=== PATIENT | male | born 1975 | race Caucasian/White ===

== ENCOUNTER 2018-07-18 15:28 | Inpatient (IN) | payer OTHER ==
[~2018-07-18] VITALS: Ht 182.9 cm; Wt 104.9 kg
[2018-07-18 21:48] VITALS: PULSE 92
[2018-07-18 21:53] VITALS: Ht 182.9 cm; Wt 104.9 kg
[2018-07-18 22:00] VITALS: BP 123/75; PULSE 95; RESP 20
[2018-07-18] MEDS ORDERED: NACL 0.9% 3 ML SYG IV SCH (22:30)
[2018-07-18] MEDS: SOD CHLORIDE 0.9% 1,000 ML IV SCH (23:10)
[2018-07-18 23:13] VITALS: BP 114/75; PULSE 109; RESP 18
[2018-07-19] VITALS (12 sets, daily range): BP systolic 108–118; BP diastolic 63–78; PULSE 66–107; RESP 17–22
[2018-07-19] MEDS: ACETAMINOPHEN 325 MG TAB PO PRN (02:47)
--- NOTE | 2018-07-19 03:28 | HP ---
Date/Time of Note Date/Time of Note DATE: 07/19/18 TIME: 03:28 Assessment/Plan VTE Prophylaxis Pharmacological prophylaxis: other Lines/Catheters IV Catheter Type (from Nrsg): Peripheral IV Assessment/Plan Hospital Course Objective Physical exam General: Patient is laying in bed and answers questions appropriately Mentation: Patient is alert and oriented 4, Head: Normocephalic atraumatic Eyes: EOMI, pupils reactive to light Neck: Supple, nontender, midline Respiratory: Clear to auscultation bilaterally Cardiovascular: Tachycardic rate, no obvious murmurs Gastrointestinal: non-tender to palpation, bowel sounds heard. Neurological: Moves all extremities spontaneously Skin: Mild edema in lower extremity bilaterally Assessment and plan Elevated liver enzyme, elevated bilirubin -CT done at outside facility does not show any obstruction of the biliary tree and is significant for fatty liver but not yet cirrhosis. -Biliary pattern is suggestive of obstruction however no dilation or obstruction seen on CT, will get ultrasound to confirm -Day team to consult GI Alcohol withdrawal -Librium on board, taper as tolerated -Ativan IV as needed for backup -Banana bag -Normal saline Electrolyte derangement -Very mild, continue fluids Anemia -Mild, monitor Diverticulitis -Asymptomatic, continue Zosyn for now, transition to oral medications soon Disposition -Admit patient for monitoring of alcohol withdrawal, will need to workup elevat ed bilirubin, day team to consult GI. Result Diagram: 07/18/18230107/18/182301 Results 24hrs Laboratory Tests Test 07/18/18 23:02 White Blood Count 7.0 Red Blood Count 3.65 L Hemoglobin 12.4 L Hematocrit 35.2 L Mean Corpuscular Volume 96.4 Mean Corpuscular Hemoglobin 34.0 H Mean Corpuscular Hemoglobin Concent 35.2 Red Cell Distribution Width 16.7 H Platelet Count 90 L Mean Platelet Volume 12.0 H Immature Granulocytes % 0.700 H Neutrophils % 71.5 Lymphocytes % 8.0 L Monocytes % 18.2 H Eosinophils % 1.3 Basophils % 0.3 Nucleated Red Blood Cells % 0.0 Immature Granulocytes # 0.050 H Neutrophils # 5.0 Lymphocytes # 0.6 L Monocytes # 1.3 H Eosinophils # 0.1 Basophils # 0.0 Nucleated Red Blood Cells # 0.0 Sodium Level 133 L Potassium Level 3.5 Chloride Level 96 L Carbon Dioxide Level 25 Anion Gap 12 Blood Urea Nitrogen 7 Creatinine 0.50 L Est Glomerular Filtrat Rate mL/min > 60 Glucose Level 102 Calcium Level 8.3 L Total Bilirubin 25.0 H Direct Bilirubin 18.80 *H Indirect Bilirubin 6.2 H Aspartate Amino Transf (AST/SGOT) 177 H Alanine Aminotransferase (ALT/SGPT) 59 Alkaline Phosphatase 192 H Total Protein 7.5 Albumin 3.1 L Globulin 4.40 H Albumin/Globulin Ratio 0.70 HPI/ROS Admit Date/Time Admit Date/Time Jul 18, 2018 at 21:26 Hx of Present Illness Patient is a male with a past medical history significant for alcoholism who presents to [facility] as a transfer from outside facility. Patient was brought to outside facility by a friend who was getting worried about the patient's drinking habits and wanted him to detox. Patient also would like to detox. In the other facility patient's labs were found to be diffusely abnormal as his bilirubin was elevated to 26. Patient was also found to have diverticulitis however patient denies any abdominal pain whatsoever. Patient does however state that his feet bilaterally feel more swollen and have been more painful than the past 2 days. Patient states that he drinks 6 L of vodka every day and he has tried quitting in the past and he does suffer from alcohol withdrawals. Patient denies chest pain, shortness of breath, headache, abdominal pain, nausea, vomiting. PMH/Family/Social Past Medical History Medications Current Medications Sodium Chloride 1,000 ml @ 125 mls/hr Q8H IV Last administered on 07/18/18at 23:10; Admin Dose 125 MLS/HR; Start 07/18/18 at 22:18 IV Flush (NS 3 ml) 3 ml PER PROTOCOL IV ; Start 07/18/18 at 22:30 Lorazepam (Ativan) 0.5 mg Q6H PRN IV .ANXIETY; Start 07/18/18 at 22:30 Acetaminophen (Tylenol Tab) 650 mg Q6H PRN PO .PAIN 1-3 OR TEMP Last administered on 07/19/18at 02:47; Admin Dose 650 MG; Start 07/18/18 at 22:30 Piperacillin Sod/ Tazobactam Sod 100 ml @ 200 mls/hr Q6 IVPB ; Start 07/19/18 at 06:00 Pantoprazole (Protonix Tab) 40 mg DAILY@06 PO ; Start 07/19/18 at 06:00 Multivitamins 10 ml/Thiamine HCl 100 mg/Folic Acid 1 mg/Sodium Chloride 1,011.2 ml @ 125 mls/ hr DAILY@09 IVPB ; Start 07/19/18 at 09:00 Chlordiazepoxide (Librium) 50 mg TID PO ; Start 07/19/18 at 09:00 Coded Allergies: risperidone (Verified Allergy, Severe, STOMACH REACTION, FACE LOCKS UP, 07/18/18) Social History Smoking Status: Former smoker Exam/Review of Systems Vital Signs Vitals Vital Signs Date Temp Pulse Resp B/P (MAP) Pulse Ox O2 O2 Flow FiO2 Time Delivery Rate 07/19/18 98.4 101 22 115/64 98 03:12 (81) DAISY CHADWICK Jul 19, 2018 03:28
[2018-07-19] MEDS: LORAZEPAM 2 MG INJ IV PRN ×2 (04:20→21:06)
[2018-07-19] MEDS: PANTOPRAZOLE (EC) 40 MG TAB PO SCH (05:29)
[2018-07-19] MEDS: PIPER-TAZO 3.375 GM IV (PMX) 100 ML IVPB SCH ×4 (05:29→23:34)
[2018-07-19] MEDS ORDERED: PANTOPRAZOLE 40 MG INJ IV SCH (06:00)
[2018-07-19] MEDS: SOD CHLORIDE 0.9% 1,000 ML IV SCH ×3 (06:18→17:40)
[2018-07-19] MEDS: MULTIVITAMINS 10 ML, THIAMINE 100 MG, FOLIC ACID 1 MG in SOD CHLORIDE 0.9% 1,000 ML IVPB SCH (08:47)
[2018-07-19] MEDS: CHLORDIAZEPOXIDE 25 MG CAP PO SCH ×3 (08:47→21:06)
--- NOTE | 2018-07-19 12:32 | CONS ---
Assessment/Plan Assessment/Plan Assessment/Plan (Daily) Assessment: Alcoholic hepatitis Coagulopathy Thrombocytopenia Hyperbilirubinemia Hepatic encephalopathy Diverticulitis Alcohol abuse -6 L of vodka a day DF 44 Plan: Start lactulose 3 times daily -titrate to 3 bowel movements a day Start pentoxifylline 400 mg p.o. 3 times daily instead of steroids Continue Zosyn for diverticulitis Monitor LFTs and bilirubin Monitor H&H Transfuse for hemoglobin less than 7.5 Recommend EGD for esophageal variceal screening inpatient versus outpatient Patient seen in collaboration with Consultation Date/Type/Reason Admit Date/Time Jul 18, 2018 at 21:26 Date of Consultation: Jul 19, 2018 Type of Consult GI Reason for Consultation Hyperbilirubinemia Date/Time of Note DATE: 07/19/18 TIME: 12:14 Hx of Present Illness This is a 43-year-old male with a history of alcoholism who has been brought to the hospital for detox. Patient was found to have bilirubin of 25, mostly direct bilirubin elevated. AST 152, thrombocytopenia and coagulopathy. Patient drinks 6 L of vodka a day. Appears encephalopathic and confused. CT of the abdomen and ultrasound is negative for biliary dilatation or obstruction. Patient has diverticulitis on CT and has been started on Zosyn. Patient denies nausea, vomiting, abdominal pain, hematemesis, hematochezia, diarrhea or constipation. Discriminant function is 44.2. Patient is not a good candidate for methylprednisolone treatment due to diverticulitis infection. We will start the patient on Pentoxifylline 400 mg po TID. lactulose 3 times daily for hepatic encephalopathy to titrate to 3 bowel movements per day. Patient has normocytic anemia. Recommend EGD for screening of esophageal varices inpatient versus outpatient. Gastrointestinal: no complaints (See HPI) Past Medical History Alcoholism Medications Current Medications Sodium Chloride 1,000 ml @ 125 mls/hr Q8H IV Last administered on 07/18/18at 23:10; Admin Dose 125 MLS/HR; Start 07/18/18 at 22:18 IV Flush (NS 3 ml) 3 ml PER PROTOCOL IV ; Start 07/18/18 at 22:30 Lorazepam (Ativan) 0.5 mg Q6H PRN IV .ANXIETY Last administered on 07/19/18at 04:20; Admin Dose 0.5 MG; Start 07/18/18 at 22:30 Acetaminophen (Tylenol Tab) 650 mg Q6H PRN PO .PAIN 1-3 OR TEMP Last administered on 07/19/18 02:47; Admin Dose 650 MG; Start 07/18/18 at 22:30 Piperacillin Sod/ Tazobactam Sod 100 ml @ 200 mls/hr Q6 IVPB Last administered on 07/19/18 05:29; Admin Dose 200 MLS/HR; Start 07/19/18 at 06:00 Pantoprazole (Protonix Tab) 40 mg DAILY@06 PO Last administered on 07/19/18 05:29; Admin Dose 40 MG; Start 07/19/18 at 06:00 Multivitamins 10 ml/Thiamine HCl 100 mg/Folic Acid 1 mg/Sodium Chloride 1,011.2 ml @ 125 mls/ hr DAILY@09 IVPB Last administered on 07/19/18 08:47; Admin Dose 125 MLS/HR; Start 07/19/18 at 09:00 Chlordiazepoxide (Librium) 50 mg TID PO Last administered on 07/19/18 08:47; Admin Dose 50 MG; Start 07/19/18 at 09:00 Pentoxifylline (Trental) 400 mg TID PO ; Start 07/19/18 at 13:00; Stop 08/16/18 at 12:59; Status UNV Allergies: Coded Allergies: risperidone (Verified Allergy, Severe, STOMACH REACTION, FACE LOCKS UP, 07/18/18) Past Surgical History Past Surgical Hx: no surgical history Social History Alcohol Use: heavy Smoking Status: Former smoker Drug Use: none Exam/Review of Systems Exam Vitals Vital Signs Date Temp Pulse Resp B/P (MAP) Pulse Ox O2 O2 Flow FiO2 Time Delivery Rate 07/19/18 92 12:08 07/19/18 98.2 17 117/75 98 12:03 (89) Intake and Output 07/18/18 07/18/18 07/19/18 1515:00 23:00 07:00 IntakeIntake Total 1275 ml BalanceBalance 1275 ml Exam PHYSICAL EXAMINATION: GENERAL: Well developed, well nourished, confused, in no acute distress SKIN: No lesions, profound jaundice, no evidence of bleeding diathesis LYMPHATIC: No palpable lymphadenopathy. HEAD: Normocephalic, atraumatic, no tenderness. EYES: Pupils equal reactive to light and accommodation, full extraocular movements, sclera-icteric, no discharge. EARS/NOSE AND THROAT: Ears normal, nose normal, oropharynx normal, oral membranes well hydrated without lesions. NECK: Supple, no masses, thyroid normal, JVP within normal limits, carotids normal without bruits. CHEST: Inspection within normal limits. CARDIOVASCULAR: Heart: Regular rate and rhythm, no murmurs, gallops or rubs. Peripheral pulses present within normal limits, no cyanosis, clubbing or edemas. No pulsatile abdominal mass RESPIRATORY: Lungs clear to auscultation and percussion, no wheezing, no rubs GASTROINTESTINAL AND LIVER: Abdomen: Soft, non tenderness, non-distended, no hernias, no masses, no organomegaly, no ascites, no guarding, no rebound tenderness, normoactive bowel sounds. Rectal: Deferred. GENITOURINARY: Male genitalia within normal limits. EXTREMITIES: No cyanosis, lower extremity edema. Results Result Diagram: 07/19/18 0724 07/19/18 0724 Results 24hrs Laboratory Tests Test 07/18/18 23:02 07/19/18 07:24 07/19/18 12:04 White Blood Count 7.0 5.7 Red Blood Count 3.65 L 3.17 L Hemoglobin 12.4 L 10.7 L Hematocrit 35.2 L 30.6 L Mean Corpuscular Volume 96.4 96.5 Mean Corpuscular Hemoglobin 34.0 H 33.8 H Mean Corpuscular Hemoglobin Concent 35.2 35.0 Red Cell Distribution Width 16.7 H 16.7 H Platelet Count 90 L 87 L Mean Platelet Volume 12.0 H 12.2 H Immature Granulocytes % 0.700 H 1.100 H Neutrophils % 71.5 65.1 Lymphocytes % 8.0 L 11.1 L Monocytes % 18.2 H 19.7 H Eosinophils % 1.3 2.5 Basophils % 0.3 0.5 Nucleated Red Blood Cells % 0.0 0.0 Immature Granulocytes # 0.050 H 0.060 H Neutrophils # 5.0 3.7 Lymphocytes # 0.6 L 0.6 L Monocytes # 1.3 H 1.1 H Eosinophils # 0.1 0.1 Basophils # 0.0 0.0 Nucleated Red Blood Cells # 0.0 0.0 Sodium Level 133 L 130 L Potassium Level 3.5 3.6 Chloride Level 96 L 94 L Carbon Dioxide Level 25 26 Anion Gap 12 10 Blood Urea Nitrogen 7 8 Creatinine 0.50 L 0.53 L Est Glomerular Filtrat Rate mL/min > 60 > 60 Glucose Level 102 87 Calcium Level 8.3 L 7.7 L Total Bilirubin 25.0 H 23.5 H Direct Bilirubin 18.80 *H 17.40 *H Indirect Bilirubin 6.2 H 6.1 H Aspartate Amino Transf (AST/SGOT) 177 H 156 H Alanine Aminotransferase (ALT/SGPT) 59 56 Alkaline Phosphatase 192 H 160 H Total Protein 7.5 6.4 # Albumin 3.1 L 2.7 L Globulin 4.40 H 3.70 H Albumin/Globulin Ratio 0.70 0.72 Prothrombin Time 19.4 H Prothrombin Time Ratio 1.5 INR International Normalized Ratio 1.63 Activated Partial Thromboplast Time 37.9 H Thrombin Time 19.0 Hemoglobin A1c 4.5 Magnesium Level 2.0 Triglycerides Level 94 Cholesterol Level 81 L LDL Cholesterol, Calculated 50 HDL Cholesterol 12 L Cholesterol/HDL Ratio 6.7 Thyroid Stimulating Hormone (TSH) 1.350 Bedside Glucose 107 Medications Medication Current Medications Sodium Chloride 1,000 ml @ 125 mls/hr Q8H IV Last administered on 07/18/18 23:10; Admin Dose 125 MLS/HR; Start 07/18/18 at 22:18 IV Flush (NS 3 ml) 3 ml PER PROTOCOL IV ; Start 07/18/18 at 22:30 Lorazepam (Ativan) 0.5 mg Q6H PRN IV .ANXIETY Last administered on 07/19/18 04:20; Admin Dose 0.5 MG; Start 07/18/18 at 22:30 Acetaminophen (Tylenol Tab) 650 mg Q6H PRN PO .PAIN 1-3 OR TEMP Last administered on 07/19/18 02:47; Admin Dose 650 MG; Start 07/18/18 at 22:30 Piperacillin Sod/ Tazobactam Sod 100 ml @ 200 mls/hr Q6 IVPB Last administered on 07/19/18 05:29; Admin Dose 200 MLS/HR; Start 07/19/18 at 06:00 Pantoprazole (Protonix Tab) 40 mg DAILY@06 PO Last administered on 07/19/18 05:29; Admin Dose 40 MG; Start 07/19/18 at 06:00 Multivitamins 10 ml/Thiamine HCl 100 mg/Folic Acid 1 mg/Sodium Chloride 1,011.2 ml @ 125 mls/ hr DAILY@09 IVPB Last administered on 07/19/18at 08:47; Admin Dose 125 MLS/HR; Start 07/19/18 at 09:00 Chlordiazepoxide (Librium) 50 mg TID PO Last administered on 07/19/18at 08:47; Admin Dose 50 MG; Start 07/19/18 at 09:00 Pentoxifylline (Trental) 400 mg TID PO ; Start 07/19/18 at 13:00; Stop 08/16/18 at 12:59; Status RANJEET KENNEDY NP Jul 19, 2018 12:27
--- NOTE | 2018-07-19 13:09 | PN ---
Date/Time of Note Date/Time of Note DATE: 07/19/18 TIME: 13:04 Assessment/Plan VTE Prophylaxis Risk score (from Ns)>0 risk: 3 SCD applied (from Ns): Yes Pharmacological prophylaxis: NA/contraindicated Pharm contraindication: liver dx Lines/Catheters IV [facility]from [facility] Assessment/Plan Hospital Course SUBJECTIVE: Denies any abdominal pain. Complains of bilateral lower extremity pain. OBJECTIVE: Physical Exam General: Obese 43 year-old male lying in bed in no apparent distress. HEENT: Normocephalic, atraumatic. Eyes: icteric sclerae, conjunctivae clear. ENT: Nasal septum midline, oral mucosa moist. Neck supple, JVD noticed. Respiratory: Bilaterally diminished breath sounds. No use of accessory muscles of respiration. No adventitious breath sounds. Cardiovascular: S1, S2 heard. Regular rate and rhythm. Abdomen: Soft, nontender, and nondistended. Bowel sounds positive in all 4 quadrants. Genitourinary: Deferred. Extremities: No cyanosis, no clubbing, no edema. Peripheral pulses palpable. Neurologic: Cranial nerves II through XII grossly intact. The patient is awake, alert, and oriented. Labs & Vitals per chart ASSESSMENT & PLAN 43-year-old male with past medical history alcoholism, who was brought in by for his friend for concerns of excessive alcoholism. The patient was noticed to have underlying hyperbilirubinemia with transaminitis. The patient was initially evaluated at an outside facility. The patient underwent a CT scan of the abdomen and pelvis that was also showing diverticulitis. The patient was transferred to [facility] for further evaluation because of insurance reasons. 1. Alcoholic hepatitis. -Continue pentoxifylline. -Being followed by gastroenterology. 2. Alcoholic liver cirrhosis vitamins. -Continue lactulose. -Plan for esophagogastroduodenoscopy to evaluate for any esophageal varices. 3. Transaminitis with hyperbilirubinemia. -Most probably secondary to #2. -Avoid hepatotoxic medications. 4. Alcoholism -Continue Librium taper. -Continue multivitamins. 5. Coagulopathy. -Most probably secondary to underlying liver disease. -Monitor for bleeding. 6. Obesity. -BMI more than 31 kg or menisci. -Weight reduction would be advised. 7. Diverticulitis on CT. -Continue Zosyn. 8. Fluids, electrolytes, and nutrition. -Mechanical soft diet. 9. DVT prophylaxis. -Chemical DVT prophylaxis contraindicated. 10. Plan. -Continue gastroenterology recommendations. -Await esophagogastroduodenoscopy. The patient was seen in collaboration with Dr. Walton. Result Diagram: 07/19/1824 07/19/18 0724 Results 24hrs Laboratory Tests Test 07/18/18 23:02 07/19/18 07:24 07/19/18 12:04 White Blood Count 7.0 5.7 Red Blood Count 3.65 L 3.17 L Hemoglobin 12.4 L 10.7 L Hematocrit 35.2 L 30.6 L Mean Corpuscular Volume 96.4 96.5 Mean Corpuscular Hemoglobin 34.0 H 33.8 H Mean Corpuscular Hemoglobin Concent 35.2 35.0 Red Cell Distribution Width 16.7 H 16.7 H Platelet Count 90 L 87 L Mean Platelet Volume 12.0 H 12.2 H Immature Granulocytes % 0.700 H 1.100 H Neutrophils % 71.5 65.1 Lymphocytes % 8.0 L 11.1 L Monocytes % 18.2 H 19.7 H Eosinophils % 1.3 2.5 Basophils % 0.3 0.5 Nucleated Red Blood Cells % 0.0 0.0 Immature Granulocytes # 0.050 H 0.060 H Neutrophils # 5.0 3.7 Lymphocytes # 0.6 L 0.6 L Monocytes # 1.3 H 1.1 H Eosinophils # 0.1 0.1 Basophils # 0.0 0.0 Nucleated Red Blood Cells # 0.0 0.0 Sodium Level 133 L 130 L Potassium Level 3.5 3.6 Chloride Level 96 L 94 L Carbon Dioxide Level 25 26 Anion Gap 12 10 Blood Urea Nitrogen 7 8 Creatinine 0.50 L 0.53 L Est Glomerular Filtrat Rate mL/min > 60 > 60 Glucose Level 102 87 Calcium Level 8.3 L 7.7 L Total Bilirubin 25.0 H 23.5 H Direct Bilirubin 18.80 *H 17.40 *H Indirect Bilirubin 6.2 H 6.1 H Aspartate Amino Transf (AST/SGOT) 177 H 156 H Alanine Aminotransferase (ALT/SGPT) 59 56 Alkaline Phosphatase 192 H 160 H Total Protein 7.5 6.4 # Albumin 3.1 L 2.7 L Globulin 4.40 H 3.70 H Albumin/Globulin Ratio 0.70 0.72 Prothrombin Time 19.4 H Prothrombin Time Ratio 1.5 INR International Normalized Ratio 1.63 Activated Partial Thromboplast Time 37.9 H Thrombin Time 19.0 Hemoglobin A1c 4.5 Magnesium Level 2.0 Triglycerides Level 94 Cholesterol Level 81 L LDL Cholesterol, Calculated 50 HDL Cholesterol 12 L Cholesterol/HDL Ratio 6.7 Thyroid Stimulating Hormone (TSH) 1.350 Bedside Glucose 107 Exam/Review of Systems Exam Vitals Vital Signs Date Temp Pulse Resp B/P (MAP) Pulse Ox O2 O2 Flow FiO2 Time Delivery Rate 07/19/18 92 12:08 07/19/18 98.2 17 117/75 98 12:03 (89) Intake and Output 07/18/18 07/18/18 07/19/18 1414:59 22:59 06:59 IntakeIntake Total 1275 ml BalanceBalance 1275 ml Results Results 24hrs Laboratory Tests Test 07/18/18 23:02 07/19/18 07:24 07/19/18 12:04 White Blood Count 7.0 5.7 Red Blood Count 3.65 L 3.17 L Hemoglobin 12.4 L 10.7 L Hematocrit 35.2 L 30.6 L Mean Corpuscular Volume 96.4 96.5 Mean Corpuscular Hemoglobin 34.0 H 33.8 H Mean Corpuscular Hemoglobin Concent 35.2 35.0 Red Cell Distribution Width 16.7 H 16.7 H Platelet Count 90 L 87 L Mean Platelet Volume 12.0 H 12.2 H Immature Granulocytes % 0.700 H 1.100 H Neutrophils % 71.5 65.1 Lymphocytes % 8.0 L 11.1 L Monocytes % 18.2 H 19.7 H Eosinophils % 1.3 2.5 Basophils % 0.3 0.5 Nucleated Red Blood Cells % 0.0 0.0 Immature Granulocytes # 0.050 H 0.060 H Neutrophils # 5.0 3.7 Lymphocytes # 0.6 L 0.6 L Monocytes # 1.3 H 1.1 H Eosinophils # 0.1 0.1 Basophils # 0.0 0.0 Nucleated Red Blood Cells # 0.0 0.0 Sodium Level 133 L 130 L Potassium Level 3.5 3.6 Chloride Level 96 L 94 L Carbon Dioxide Level 25 26 Anion Gap 12 10 Blood Urea Nitrogen 7 8 Creatinine 0.50 L 0.53 L Est Glomerular Filtrat Rate mL/min > 60 > 60 Glucose Level 102 87 Calcium Level 8.3 L 7.7 L Total Bilirubin 25.0 H 23.5 H Direct Bilirubin 18.80 *H 17.40 *H Indirect Bilirubin 6.2 H 6.1 H Aspartate Amino Transf (AST/SGOT) 177 H 156 H Alanine Aminotransferase (ALT/SGPT) 59 56 Alkaline Phosphatase 192 H 160 H Total Protein 7.5 6.4 # Albumin 3.1 L 2.7 L Globulin 4.40 H 3.70 H Albumin/Globulin Ratio 0.70 0.72 Prothrombin Time 19.4 H Prothrombin Time Ratio 1.5 INR International Normalized Ratio 1.63 Activated Partial Thromboplast Time 37.9 H Thrombin Time 19.0 Hemoglobin A1c 4.5 Magnesium Level 2.0 Triglycerides Level 94 Cholesterol Level 81 L LDL Cholesterol, Calculated 50 HDL Cholesterol 12 L Cholesterol/HDL Ratio 6.7 Thyroid Stimulating Hormone (TSH) 1.350 Bedside Glucose 107 Medications Medication Current Medications Sodium Chloride 1,000 ml @ 125 mls/hr Q8H IV Last administered on 07/18/18at 23:10; Admin Dose 125 MLS/HR; Start 07/18/18 at 22:18 IV Flush (NS 3 ml) 3 ml PER PROTOCOL IV ; Start 07/18/18 at 22:30 Lorazepam (Ativan) 0.5 mg Q6H PRN IV .ANXIETY Last administered on 07/19/18 04:20; Admin Dose 0.5 MG; Start 07/18/18 at 22:30 Acetaminophen (Tylenol Tab) 650 mg Q6H PRN PO .PAIN 1-3 OR TEMP Last administered on 07/19/18at 02:47; Admin Dose 650 MG; Start 07/18/18 at 22:30 Piperacillin Sod/ Tazobactam Sod 100 ml @ 200 mls/hr Q6 IVPB Last administered on 07/19/18 05:29; Admin Dose 200 MLS/HR; Start 07/19/18 at 06:00 Pantoprazole (Protonix Tab) 40 mg DAILY@06 PO Last administered on 07/19/18 05:29; Admin Dose 40 MG; Start 07/19/18 at 06:00 Multivitamins 10 ml/Thiamine HCl 100 mg/Folic Acid 1 mg/Sodium Chloride 1,011.2 ml @ 125 mls/ hr DAILY@09 IVPB Last administered on 07/19/18at 08:47; Admin Dos e 125 MLS/HR; Start 07/19/18 at 09:00 Chlordiazepoxide (Librium) 50 mg TID PO Last administered on 07/19/18at 08:47; Admin Dose 50 MG; Start 07/19/18 at 09:00 Pentoxifylline (Trental) 400 mg TID PO ; Start 07/19/18 at 13:00; Stop 08/16/18 at 12:59 Lactulose (Enulose) 20 gm Q8 PO ; Start 07/19/18 at 14:00 YEN RAINEY NP Jul 19, 2018 13:08
[2018-07-19] MEDS: LACTULOSE 30ML CUP PO SCH ×2 (13:17→21:06)
[2018-07-19] MEDS: PENTOXIFYLLINE (SR) 400 MG TAB PO SCH ×2 (14:32→21:06)
[2018-07-20] VITALS (10 sets, daily range): BP systolic 105–132; BP diastolic 55–76; PULSE 85–100; RESP 18–20
[2018-07-20] MEDS: ACETAMINOPHEN 325 MG TAB PO PRN ×3 (02:38→20:14)
[2018-07-20] MEDS: SOD CHLORIDE 0.9% 1,000 ML IV SCH (06:37)
[2018-07-20] MEDS: LACTULOSE 30ML CUP PO SCH ×3 (06:37→20:13)
[2018-07-20] MEDS: PIPER-TAZO 3.375 GM IV (PMX) 100 ML IVPB SCH ×3 (06:37→17:35)
[2018-07-20] MEDS: PANTOPRAZOLE (EC) 40 MG TAB PO SCH (06:37)
[2018-07-20] MEDS: CHLORDIAZEPOXIDE 25 MG CAP PO SCH ×3 (09:00→20:14)
[2018-07-20] MEDS: PENTOXIFYLLINE (SR) 400 MG TAB PO SCH ×3 (09:13→20:18)
[2018-07-20] MEDS: MULTIVITAMINS 10 ML, THIAMINE 100 MG, FOLIC ACID 1 MG in SOD CHLORIDE 0.9% 1,000 ML IVPB SCH (09:24)
--- NOTE | 2018-07-20 11:13 | PN ---
Date/Time of Note Date/Time of Note DATE: 07/20/18 TIME: 11:12 Assessment/Plan VTE Prophylaxis Risk score (from Ns)>0 risk: 1 SCD applied (from Ns): Yes Pharmacological prophylaxis: NA/contraindicated Pharm contraindication: blood coag disorder Lines/Catheters IV C[facility]ter Type (from [facility]): Peripheral IV Assessment/Plan Hospital Course 43-year-old male with past medical history alcoholism, who was brought in by for his friend for concerns of excessive alcoholism. The patient was noticed to have underlying hyperbilirubinemia with transaminitis. The patient was initially evaluated at an outside facility. The patient underwent a CT scan of the abdomen and pelvis that was also showing diverticulitis. The patient was transferred to [facility] for further evaluation because of insurance reasons. 1. Alcoholic hepatitis. -Continue pentoxifylline. -Being followed by gastroenterology. 2. Alcoholic liver cirrhosis vitamins. -Continue lactulose. -Plan for esophagogastroduodenoscopy to evaluate for any esophageal varices. 3. Transaminitis with hyperbilirubinemia. -Most probably secondary to #2. -Avoid hepatotoxic medications. 4. Alcoholism -Continue Librium taper. -Continue multivitamins. 5. Coagulopathy. -Most probably secondary to underlying liver disease. -Monitor for bleeding. 6. Obesity. -BMI more than 31 kg or menisci. -Weight reduction would be advised. 7. Diverticulitis on CT. -Continue Zosyn. 8. Fluids, electrolytes, and nutrition. -Mechanical soft diet. 9. DVT prophylaxis. -Chemical DVT prophylaxis contraindicated. Result Diagram: 07/20/1828 07/20/1828 Results 24hrs Laboratory Tests Test 07/19/18 12:04 07/20/18 06:28 Bedside Glucose 107 White Blood Count 6.7 Red Blood Count 3.13 L Hemoglobin 10.6 L Hematocrit 29.9 L Mean Corpuscular Volume 95.5 Mean Corpuscular Hemoglobin 33.9 H Mean Corpuscular Hemoglobin Concent 35.5 Red Cell Distribution Width 17.2 H Platelet Count 95 L Mean Platelet Volume 11.6 H Immature Granulocytes % 1.200 H Neutrophils % 62.0 Lymphocytes % 9.9 L Monocytes % 24.6 H Eosinophils % 1.8 Basophils % 0.5 Nucleated Red Blood Cells % 0.0 Immature Granulocytes # 0.080 H Neutrophils # 4.1 Lymphocytes # 0.7 L Monocytes # 1.6 H Eosinophils # 0.1 Basophils # 0.0 Nucleated Red Blood Cells # 0.0 Prothrombin Time 20.5 H Prothrombin Time Ratio 1.6 INR International Normalized Ratio 1.75 Activated Partial Thromboplast Time 39.4 H Sodium Level 131 L Potassium Level 3.0 L Chloride Level 98 Carbon Dioxide Level 23 Anion Gap 10 Blood Urea Nitrogen 7 Creatinine 0.51 L Est Glomerular Filtrat Rate mL/min > 60 Glucose Level 97 Calcium Level 7.9 L Phosphorus Level 2.6 Magnesium Level 2.0 Total Bilirubin 23.4 H Direct Bilirubin 18.50 *H Indirect Bilirubin 4.9 H Aspartate Amino Transf (AST/SGOT) 153 H Alanine Aminotransferase (ALT/SGPT) 53 Alkaline Phosphatase 175 H Ammonia 44 H Total Protein 6.1 Albumin 2.5 L Globulin 3.60 H Albumin/Globulin Ratio 0.69 Subjective 24 Hr Interval Summary Constitutional: disoriented Exam/Review of Systems Exam Vitals Vital Signs Date Temp Pulse Resp B/P (MAP) Pulse Ox O2 O2 Flow FiO2 Time Delivery Rate 07/20/18 98.4 92 18 119/68 94 08:02 (85) Intake and Output 07/19/18 07/19/18 07/20/18 1515:00 23:00 07:00 IntakeIntake Total 220 ml 1520 ml 100 ml BalanceBalance 220 ml 1520 ml 100 ml Psych: confusion Respiratory: clear to auscultation Cardiovascular: regular rate and rhythm Gastrointestinal: soft; No distended Musculoskeletal: nl extremities to inspection Results Results 24hrs Laboratory Tests Test 07/19/18 12:04 07/20/18 06:28 Bedside Glucose 107 White Blood Count 6.7 Red Blood Count 3.13 L Hemoglobin 10.6 L Hematocrit 29.9 L Mean Corpuscular Volume 95.5 Mean Corpuscular Hemoglobin 33.9 H Mean Corpuscular Hemoglobin Concent 35.5 Red Cell Distribution Width 17.2 H Platelet Count 95 L Mean Platelet Volume 11.6 H Immature Granulocytes % 1.200 H Neutrophils % 62.0 Lymphocytes % 9.9 L Monocytes % 24.6 H Eosinophils % 1.8 Basophils % 0.5 Nucleated Red Blood Cells % 0.0 Immature Granulocytes # 0.080 H Neutrophils # 4.1 Lymphocytes # 0.7 L Monocytes # 1.6 H Eosinophils # 0.1 Basophils # 0.0 Nucleated Red Blood Cells # 0.0 Prothrombin Time 20.5 H Prothrombin Time Ratio 1.6 INR International Normalized Ratio 1.75 Activated Partial Thromboplast Time 39.4 H Sodium Level 131 L Potassium Level 3.0 L Chloride Level 98 Carbon Dioxide Level 23 Anion Gap 10 Blood Urea Nitrogen 7 Creatinine 0.51 L Est Glomerular Filtrat Rate mL/min > 60 Glucose Level 97 Calcium Level 7.9 L Phosphorus Level 2.6 Magnesium Level 2.0 Total Bilirubin 23.4 H Direct Bilirubin 18.50 *H Indirect Bilirubin 4.9 H Aspartate Amino Transf (AST/SGOT) 153 H Alanine Aminotransferase (ALT/SGPT) 53 Alkaline Phosphatase 175 H Ammonia 44 H Total Protein 6.1 Albumin 2.5 L Globulin 3.60 H Albumin/Globulin Ratio 0.69 Medications Medication Current Medications Sodium Chloride 1,000 ml @ 125 mls/hr Q8H IV Last administered on 07/20/18 06:37; Admin Dose 125 MLS/HR; Start 07/18/18 at 22:18 IV Flush (NS 3 ml) 3 ml PER PROTOCOL IV ; Start 07/18/18 at 22:30 Lorazepam (Ativan) 0.5 mg Q6H PRN IV .ANXIETY Last administered on 07/19/18 21:06; Admin Dose 0.5 MG; Start 07/18/18 at 22:30 Acetaminophen (Tylenol Tab) 650 mg Q6H PRN PO .PAIN 1-3 OR TEMP Last administered on 07/20/18 11:05; Admin Dose 650 MG; Start 07/18/18 at 22:30 Piperacillin Sod/ Tazobactam Sod 100 ml @ 200 mls/hr Q6 IVPB Last administered on 07/20/18 06:37; Admin Dose 200 MLS/HR; Start 07/19/18 at 06:00 Pantoprazole (Protonix Tab) 40 mg DAILY@06 PO Last administered on 07/20/18 06:37; Admin Dose 40 MG; Start 07/19/18 at 06:00 Multivitamins 10 ml/Thiamine HCl 100 mg/Folic Acid 1 mg/Sodium Chloride 1,011.2 ml @ 125 mls/ hr DAILY@09 IVPB Last administered on 07/20/18at 09:24; Admin Dose 125 MLS/HR; Start 07/19/18 at 09:00 Chlordiazepoxide (Librium) 50 mg TID PO Last administered on 07/19/18at 21:06; Admin Dose 50 MG; Start 07/19/18 at 09:00 Pentoxifylline (Trental) 400 mg TID PO Last administered on 07/20/18at 09:13; Admin Dose 400 MG; Start 07/19/18 at 13:00; Stop 08/16/18 at 12:59 Lactulose (Enulose) 20 gm Q8 PO Last administered on 07/20/18at 06:37; Admin Dose 20 GM; Start 07/19/18 at 14:00 CELE MRATÍNEZ Jul 20, 2018 11:13
[2018-07-20] MEDS: POTASSIUM CHLORIDE 40 MEQ in SOD CHLORIDE 0.9% 1,000 ML IV SCH ×2 (13:23→22:12)
--- NOTE | 2018-07-20 14:54 | PN ---
Date/Time of Note Date/Time of Note DATE: 07/20/18 TIME: 14:52 Assessment/Plan VTE Prophylaxis Risk score (from Ns)>0 risk: 1 SCD applied (from [facility] [place] Yes Pharmacological prophylaxis: other (scds) Lines/Catheters IV Catheter Type (from [facility]): Peripheral IV Assessment/Plan Assessment/Plan Assessment: Alcoholic hepatitis- (Discriminant function is 44.2) Coagulopathy Thrombocytopenia Direct Hyperbilirubinemia- likely 2/2 to liver disease - Imaging shows no intra or extrahepatic biliary dilatation is seen. The common bile duct measures 5.8 mm Hepatic encephalopathy- resolved Diverticulitis- on Zosyn Alcohol abuse -6 L of vodka a day Plan: Change lactulose to BID titrate to 3 bowel movements a day/pentoxifylline 400 mg p.o. 3 times daily instead of steroids/Start rifaximin Continue Zosyn for diverticulitis Monitor labs Transfuse for hemoglobin less than 7.5 Recommend EGD for esophageal variceal screening inpatient versus outpatient Patient seen in collaboration with Subjective: Course reviewed with nursing staff Patient interviewed and examined All labs, imaging and other results reviewed The patient c/o numbness/swelling to BLE No c/o n/v, pt awake and alert PHYSICAL EXAMINATION: GENERAL: Well developed, well nourished, confused, in no acute distress SKIN: No lesions, profound jaundice, no evidence of bleeding diathesis CHEST: Inspection within normal limits. CARDIOVASCULAR: Heart: Regular rate and rhythm, RESPIRATORY: Lungs clear to auscultation GASTROINTESTINAL AND LIVER: Abdomen: Soft, non tenderness, non-distended, no hernias, no masses, no organomegaly, no ascites, no guarding, no rebound tenderness, normoactive bowel sounds. Rectal: Deferred. GENITOURINARY: Male genitalia within normal limits. EXTREMITIES: No cyanosis, lower extremity edema. Result Diagram: 07/20/18 0628 07/20/1828 Results 24hrs Laboratory Tests Test 07/20/18 06:28 White Blood Count 6.7 Red Blood Count 3.13 L Hemoglobin 10.6 L Hematocrit 29.9 L Mean Corpuscular Volume 95.5 Mean Corpuscular Hemoglobin 33.9 H Mean Corpuscular Hemoglobin Concent 35.5 Red Cell Distribution Width 17.2 H Platelet Count 95 L Mean Platelet Volume 11.6 H Immature Granulocytes % 1.200 H Neutrophils % 62.0 Lymphocytes % 9.9 L Monocytes % 24.6 H Eosinophils % 1.8 Basophils % 0.5 Nucleated Red Blood Cells % 0.0 Immature Granulocytes # 0.080 H Neutrophils # 4.1 Lymphocytes # 0.7 L Monocytes # 1.6 H Eosinophils # 0.1 Basophils # 0.0 Nucleated Red Blood Cells # 0.0 Prothrombin Time 20.5 H Prothrombin Time Ratio 1.6 INR International Normalized Ratio 1.75 Activated Partial Thromboplast Time 39.4 H Sodium Level 131 L Potassium Level 3.0 L Chloride Level 98 Carbon Dioxide Level 23 Anion Gap 10 Blood Urea Nitrogen 7 Creatinine 0.51 L Est Glomerular Filtrat Rate mL/min > 60 Glucose Level 97 Calcium Level 7.9 L Phosphorus Level 2.6 Magnesium Level 2.0 Total Bilirubin 23.4 H Direct Bilirubin 18.50 *H Indirect Bilirubin 4.9 H Aspartate Amino Transf (AST/SGOT) 153 H Alanine Aminotransferase (ALT/SGPT) 53 Alkaline Phosphatase 175 H Ammonia 44 H Total Protein 6.1 Albumin 2.5 L Globulin 3.60 H Albumin/Globulin Ratio 0.69 Exam/Review of Systems Exam Vitals Vital Signs Date Temp Pulse Resp B/P (MAP) Pulse Ox O2 O2 Flow FiO2 Time Delivery Rate 07/20/18 89 12:00 07/20/18 97.7 18 111/67 96 11:27 (82) Intake and Output 07/19/18 07/19/18 07/20/18 1515:00 23:00 07:00 IntakeIntake Total 220 ml 1520 ml 100 ml BalanceBalance 220 ml 1520 ml 100 ml Results Results 24hrs Laboratory Tests Test 07/20/18 06:28 White Blood Count 6.7 Red Blood Count 3.13 L Hemoglobin 10.6 L Hematocrit 29.9 L Mean Corpuscular Volume 95.5 Mean Corpuscular Hemoglobin 33.9 H Mean Corpuscular Hemoglobin Concent 35.5 Red Cell Distribution Width 17.2 H Platelet Count 95 L Mean Platelet Volume 11.6 H Immature Granulocytes % 1.200 H Neutrophils % 62.0 Lymphocytes % 9.9 L Monocytes % 24.6 H Eosinophils % 1.8 Basophils % 0.5 Nucleated Red Blood Cells % 0.0 Immature Granulocytes # 0.080 H Neutrophils # 4.1 Lymphocytes # 0.7 L Monocytes # 1.6 H Eosinophils # 0.1 Basophils # 0.0 Nucleated Red Blood Cells # 0.0 Prothrombin Time 20.5 H Prothrombin Time Ratio 1.6 INR International Normalized Ratio 1.75 Activated Partial Thromboplast Time 39.4 H Sodium Level 131 L Potassium Level 3.0 L Chloride Level 98 Carbon Dioxide Level 23 Anion Gap 10 Blood Urea Nitrogen 7 Creatinine 0.51 L Est Glomerular Filtrat Rate mL/min > 60 Glucose Level 97 Calcium Level 7.9 L Phosphorus Level 2.6 Magnesium Level 2.0 Total Bilirubin 23.4 H Direct Bilirubin 18.50 *H Indirect Bilirubin 4.9 H Aspartate Amino Transf (AST/SGOT) 153 H Alanine Aminotransferase (ALT/SGPT) 53 Alkaline Phosphatase 175 H Ammonia 44 H Total Protein 6.1 Albumin 2.5 L Globulin 3.60 H Albumin/Globulin Ratio 0.69 Medications Medication Current Medications IV Flush (NS 3 ml) 3 ml PER PROTOCOL IV ; Start 07/18/18 at 22:30 Lorazepam (Ativan) 0.5 mg Q6H PRN IV .ANXIETY Last administered on 07/19/18at 21:06; Admin Dose 0.5 MG; Start 07/18/18 at 22:30 Acetaminophen (Tylenol Tab) 650 mg Q6H PRN PO .PAIN 1-3 OR TEMP Last administered on 07/20/18 11:05; Admin Dose 650 MG; Start 07/18/18 at 22:30 Piperacillin Sod/ Tazobactam Sod 100 ml @ 200 mls/hr Q6 IVPB Last administered on 07/20/18 12:42; Admin Dose 200 MLS/HR; Start 07/19/18 at 06:00 Pantoprazole (Protonix Tab) 40 mg DAILY@06 PO Last administered on 07/20/18 06:37; Admin Dose 40 MG; Start 07/19/18 at 06:00 Multivitamins 10 ml/Thiamine HCl 100 mg/Folic Acid 1 mg/Sodium Chloride 1,011.2 ml @ 125 mls/ hr DAILY@09 IVPB Last administered on 07/20/18 09:24; Admin Dose 125 MLS/HR; Start 07/19/18 at 09:00 Chlordiazepoxide (Librium) 50 mg TID PO Last administered on 07/20/18 12:42; Admin Dose 50 MG; Start 2/15/19 at 09:00 Pentoxifylline (Trental) 400 mg TID PO Last administered on 07/20/18 12:42; Admin Dose 400 MG; Start 07/19/18 at 13:00; Stop 08/16/18 at 12:59 Lactulose (Enulose) 20 gm Q8 PO Last administered on 07/20/18at 13:23; Admin Dose 20 GM; Start 07/19/18 at 14:00 Potassium Chloride 40 meq/ Sodium Chloride 1,000 ml @ 125 mls/hr Q8H IV Last administered on 07/20/18at 13:23; Admin Dose 125 MLS/HR; Start 07/20/18 at 12:30 TAYLOR PLEITEZ Jul 20, 2018 14:54
[2018-07-20] MEDS: LORAZEPAM 2 MG INJ IV PRN (20:26)
[2018-07-20] MEDS: RIFAXIMIN 550 MG TAB PO SCH (22:18)
[2018-07-20] MEDS: morphine 2 MG INJ IV PRN (22:20)
[2018-07-21] MEDS: PIPER-TAZO 3.375 GM IV (PMX) 100 ML IVPB SCH ×5 (00:26→23:47)
[2018-07-21 02:08] VITALS: BP 114/61; PULSE 78; RESP 18
[2018-07-21] MEDS: morphine 2 MG INJ IV PRN ×4 (03:24→21:56)
[2018-07-21] MEDS: POTASSIUM CHLORIDE 40 MEQ in SOD CHLORIDE 0.9% 1,000 ML IV SCH ×3 (04:30→21:53)
[2018-07-21] MEDS: PANTOPRAZOLE (EC) 40 MG TAB PO SCH (05:27)
[2018-07-21] MEDS ORDERED: FUROSEMIDE 20 MG TAB PO SCH (06:00)
[2018-07-21 07:49] VITALS: BP 116/62; PULSE 89; RESP 16
[2018-07-21] MEDS: PENTOXIFYLLINE (SR) 400 MG TAB PO SCH ×3 (08:15→21:55)
[2018-07-21] MEDS: CHLORDIAZEPOXIDE 25 MG CAP PO SCH ×3 (08:16→21:55)
[2018-07-21] MEDS: RIFAXIMIN 550 MG TAB PO SCH ×2 (08:16→23:47)
[2018-07-21] MEDS: MULTIVITAMINS 10 ML, THIAMINE 100 MG, FOLIC ACID 1 MG in SOD CHLORIDE 0.9% 1,000 ML IVPB SCH (09:31)
[2018-07-21] MEDS: LACTULOSE 30ML CUP PO SCH (09:31)
--- NOTE | 2018-07-21 11:16 | PN ---
Date/Time of Note Date/Time of Note DATE: 07/21/18 TIME: 11:15 Assessment/Plan VTE Prophylaxis Risk score (from Ns)>0 risk: 1 SCD applied (from Ns): Yes Pharmacological prophylaxis: other (scds) Lines/Catheters IV Catheter Type (from [facility]): Peripheral IV Assessment/Plan Assessment/Plan Assessment: Alcoholic hepatitis- (Discriminant function is 44.2) Coagulopathy Thrombocytopenia- improving Direct Hyperbilirubinemia- likely 2/2 to liver disease - Imaging shows no intra or extrahepatic biliary dilatation is seen. The common bile duct measures 5.8 mm Hepatic encephalopathy- resolved Diverticulitis- on Zosyn Alcohol abuse Plan: Change lactulose to daily titrate to 3 bowel movements a day/pentoxifylline 400 mg p.o. 3 times daily instead of steroids/Rifaximin If direct bilirubin worsen will proceed with MRCP to r/o CBD obstruction- however numbers likely 2/2 to liver disease Continue Zosyn for diverticulitis Monitor labs, Transfuse for hemoglobin less than 7.5 Recommend EGD for esophageal variceal screening prior to discharge Patient seen in collaboration with Subjective: Course reviewed with nursing staff Patient interviewed and examined All labs, imaging and other results reviewed Pt c/o multiple BM will change lactulose to daily- BLE edema slightly improving, patient states he is voiding frequently Will consider diuretic therapy if edema does not improve. Maintain close o bservation. PHYSICAL EXAMINATION: GENERAL: Well developed, well nourished, confused, in no acute distress SKIN: No lesions, profound jaundice, no evidence of bleeding diathesis CHEST: Inspection within normal limits. CARDIOVASCULAR: Heart: Regular rate and rhythm RESPIRATORY: Lungs clear to auscultation GASTROINTESTINAL AND LIVER: Abdomen: Soft, non tenderness, non-distended, no hernias, no masses, no organomegaly, no ascites, no guarding, no rebound tenderness, normoactive bowel sounds. Rectal: Deferred. GENITOURINARY: Male genitalia within normal limits. EXTREMITIES: No cyanosis, lower extremity edema. Result Diagram: 07/21/18 0432 07/21/18 0432 Results 24hrs Laboratory Tests Test 07/21/18 04:32 White Blood Count 5.7 Red Blood Count 3.23 L Hemoglobin 11.1 L Hematocrit 31.4 L Mean Corpuscular Volume 97.2 Mean Corpuscular Hemoglobin 34.4 H Mean Corpuscular Hemoglobin Concent 35.4 Red Cell Distribution Width 17.2 H Platelet Count 109 L Mean Platelet Volume 11.7 H Immature Granulocytes % 1.000 H Neutrophils % 63.2 Lymphocytes % 11.7 L Monocytes % 21.0 H Eosinophils % 2.6 Basophils % 0.5 Nucleated Red Blood Cells % 0.0 Immature Granulocytes # 0.060 H Neutrophils # 3.6 Lymphocytes # 0.7 L Monocytes # 1.2 H Eosinophils # 0.2 Basophils # 0.0 Nucleated Red Blood Cells # 0.0 Sodium Level 133 L Potassium Level 3.3 L Chloride Level 99 Carbon Dioxide Level 25 Anion Gap 9 Blood Urea Nitrogen 5 L Creatinine 0.50 L Est Glomerular Filtrat Rate mL/min > 60 Glucose Level 99 Calcium Level 7.8 L Exam/Review of Systems Exam Vitals Vital Signs Date Temp Pulse Resp B/P (MAP) Pulse Ox O2 O2 Flow FiO2 Time Delivery Rate 07/21/18 97.7 89 16 116/62 97 07:49 (80) Intake and Output 07/20/18 07/20/18 07/21/18 1515:00 23:00 07:00 IntakeIntake Total 2590 ml 320 ml 1250 ml BalanceBalance 2590 ml 320 ml 1250 ml Results Results 24hrs Laboratory Tests Test 07/21/18 04:32 White Blood Count 5.7 Red Blood Count 3.23 L Hemoglobin 11.1 L Hematocrit 31.4 L Mean Corpuscular Volume 97.2 Mean Corpuscular Hemoglobin 34.4 H Mean Corpuscular Hemoglobin Concent 35.4 Red Cell Distribution Width 17.2 H Platelet Count 109 L Mean Platelet Volume 11.7 H Immature Granulocytes % 1.000 H Neutrophils % 63.2 Lymphocytes % 11.7 L Monocytes % 21.0 H Eosinophils % 2.6 Basophils % 0.5 Nucleated Red Blood Cells % 0.0 Immature Granulocytes # 0.060 H Neutrophils # 3.6 Lymphocytes # 0.7 L Monocytes # 1.2 H Eosinophils # 0.2 Basophils # 0.0 Nucleated Red Blood Cells # 0.0 Sodium Level 133 L Potassium Level 3.3 L Chloride Level 99 Carbon Dioxide Level 25 Anion Gap 9 Blood Urea Nitrogen 5 L Creatinine 0.50 L Est Glomerular Filtrat Rate mL/min > 60 Glucose Level 99 Calcium Level 7.8 L Medications Medication Current Medications IV Flush (NS 3 ml) 3 ml PER PROTOCOL IV ; Start 07/18/18 at 22:30 Lorazepam (Ativan) 0.5 mg Q6H PRN IV .ANXIETY Last administered on 07/20/18 20:26; Admin Dose 0.5 MG; Start 07/18/18 at 22:30 Acetaminophen (Tylenol Tab) 650 mg Q6H PRN PO .PAIN 1-3 OR TEMP Last administered on 07/20/18 20:14; Admin Dose 650 MG; Start 07/18/18 at 22:30 Piperacillin Sod/ Tazobactam Sod 100 ml @ 200 mls/hr Q6 IVPB Last administered on 07/21/18 05:27; Admin Dose 200 MLS/HR; Start 07/19/18 at 06:00 Pantoprazole (Protonix Tab) 40 mg DAILY@06 PO Last administered on 07/21/18 05:27; Admin Dose 40 MG; Start 07/19/18 at 06:00 Multivitamins 10 ml/Thiamine HCl 100 mg/Folic Acid 1 mg/Sodium Chloride 1,011.2 ml @ 125 mls/ hr DAILY@09 IVPB Last administered on 07/21/18 09:31; Admin Dose 125 MLS/HR; Start 07/19/18 at 09:00 Chlordiazepoxide (Librium) 50 mg TID PO Last administered on 07/21/18 08:16; Admin Dose 50 MG; Start 07/19/18 at 09:00 Pentoxifylline (Trental) 400 mg TID PO Last administered on 07/21/18 08:15; Admin Dose 400 MG; Start 07/19/18 at 13:00; Stop 08/16/18 at 12:59 Potassium Chloride 40 meq/ Sodium Chloride 1,000 ml @ 125 mls/hr Q8H IV Last administered on 07/20/18 22:12; Admin Dose 125 MLS/HR; Start 07/20/18 at 12:30 Rifaximin (Xifaxan) 550 mg BID PO Last administered on 07/21/18 08:16; Admin Dose 550 MG; Start 07/20/18 at 21:00 Lactulose (Enulose) 20 gm Q12 PO Last administered on 07/21/18 09:31; Admin Dose 20 GM; Start 07/20/18 at 21:00 Morphine Sulfate (morphine) 2 mg Q4H PRN IV SEVERE PAIN LEVEL 7-10 Last administered on 07/21/18at 07:52; Admin Dose 2 MG; Start 07/20/18 at 22:30 TAYLOR PLEITEZ Jul 21, 2018 11:16
[2018-07-21 14:46] VITALS: BP 109/66; RESP 16
[2018-07-21 15:55] VITALS: PULSE 75
--- NOTE | 2018-07-21 16:42 | PN ---
Date/Time of Note Date/Time of Note DATE: 07/21/18 TIME: 16:40 Assessment/Plan VTE Prophylaxis [place] [facility] [place]: 1 [place]CD applied [place] [facility] [place] Yes Pharmacological prophylaxis: NA/contraindicated Pharm contraindication: liver dx Lines/Catheters IV Catheter Type (from [facility]): Peripheral IV Assessment/Plan Hospital Course 43-year-old male with past medical history alcoholism, who was brought in by for his friend for concerns of excessive alcoholism. The patient was noticed to have underlying hyperbilirubinemia with transaminitis. The patient was initially evaluated at an outside facility. The patient underwent a CT scan of the abdomen and pelvis that was also showing diverticulitis. The patient was transferred to [facility] for further evaluation because of insurance reasons. 1. Acute alcoholic hepatitis. -Continue pentoxifylline. -Being followed by gastroenterology -Continue banana bag and Librium 2. Alcoholic liver cirrhosis -Continue lactulose. -Plan for esophagogastroduodenoscopy to evaluate for any esophageal varices. 3. Coagulopathy secondary liver disease 4. Obesity. -BMI more than 31 kg or menisci. -Weight reduction to be advised 5. Diverticulitis on CT. -Continue Zosyn Prophylaxis: SCDs Result Diagram: 07/21/18 0432 07/21/18 0432 Results 24hrs Laboratory Tests Test 07/21/18 04:32 White Blood Count 5.7 Red Blood Count 3.23 L Hemoglobin 11.1 L Hematocrit 31.4 L Mean Corpuscular Volume 97.2 Mean Corpuscular Hemoglobin 34.4 H Mean Corpuscular Hemoglobin Concent 35.4 Red Cell Distribution Width 17.2 H Platelet Count 109 L Mean Platelet Volume 11.7 H Immature Granulocytes % 1.000 H Neutrophils % 63.2 Lymphocytes % 11.7 L Monocytes % 21.0 H Eosinophils % 2.6 Basophils % 0.5 Nucleated Red Blood Cells % 0.0 Immature Granulocytes # 0.060 H Neutrophils # 3.6 Lymphocytes # 0.7 L Monocytes # 1.2 H Eosinophils # 0.2 Basophils # 0.0 Nucleated Red Blood Cells # 0.0 Sodium Level 133 L Potassium Level 3.3 L Chloride Level 99 Carbon Dioxide Level 25 Anion Gap 9 Blood Urea Nitrogen 5 L Creatinine 0.50 L Est Glomerular Filtrat Rate mL/min > 60 Glucose Level 99 Calcium Level 7.8 L Subjective 24 Hr Interval Summary Free Text/Dictation Lethargic Exam/Review of Systems Exam Vitals Vital Signs Date Temp Pulse Resp B/P (MAP) Pulse Ox O2 O2 Flow FiO2 Time Delivery Rate 07/21/18 75 15:55 07/21/18 97.1 16 109/66 95 14:46 (80) Intake and Output 07/20/18 07/20/18 07/21/18 1515:00 23:00 07:00 IntakeIntake Total 2590 ml 320 ml 1250 ml BalanceBalance 2590 ml 320 ml 1250 ml Constitutional: alert Respiratory: clear to auscultation Cardiovascular: regular rate and rhythm Gastrointestinal: soft; No distended Musculoskeletal: nl extremities to inspection Results Results 24hrs Laboratory Tests Test 07/21/18 04:32 White Blood Count 5.7 Red Blood Count 3.23 L Hemoglobin 11.1 L Hematocrit 31.4 L Mean Corpuscular Volume 97.2 Mean Corpuscular Hemoglobin 34.4 H Mean Corpuscular Hemoglobin Concent 35.4 Red Cell Distribution Width 17.2 H Platelet Count 109 L Mean Platelet Volume 11.7 H Immature Granulocytes % 1.000 H Neutrophils % 63.2 Lymphocytes % 11.7 L Monocytes % 21.0 H Eosinophils % 2.6 Basophils % 0.5 Nucleated Red Blood Cells % 0.0 Immature Granulocytes # 0.060 H Neutrophils # 3.6 Lymphocytes # 0.7 L Monocytes # 1.2 H Eosinophils # 0.2 Basophils # 0.0 Nucleated Red Blood Cells # 0.0 Sodium Level 133 L Potassium Level 3.3 L Chloride Level 99 Carbon Dioxide Level 25 Anion Gap 9 Blood Urea Nitrogen 5 L Creatinine 0.50 L Est Glomerular Filtrat Rate mL/min > 60 Glucose Level 99 Calcium Level 7.8 L Medications Medication Current Medications IV Flush (NS 3 ml) 3 ml PER PROTOCOL IV ; Start 07/18/18 at 22:30 Lorazepam (Ativan) 0.5 mg Q6H PRN IV .ANXIETY Last administered on 07/20/18at 20:26; Admin Dose 0.5 MG; Start 07/18/18 at 22:30 Acetaminophen (Tylenol Tab) 650 mg Q6H PRN PO .PAIN 1-3 OR TEMP Last administered on 07/20/18at 20:14; Admin Dose 650 MG; Start 07/18/18 at 22:30 Piperacillin Sod/ Tazobactam Sod 100 ml @ 200 mls/hr Q6 IVPB Last administered on 07/21/18 11:53; Admin Dose 200 MLS/HR; Start 07/19/18 at 06:00 Pantoprazole (Protonix Tab) 40 mg DAILY@06 PO Last administered on 07/21/18 05:27; Admin Dose 40 MG; Start 07/19/18 at 06:00 Multivitamins 10 ml/Thiamine HCl 100 mg/Folic Acid 1 mg/Sodium Chloride 1,011.2 ml @ 125 mls/ hr DAILY@09 IVPB Last administered on 07/21/18 09:31; Admin Dose 125 MLS/HR; Start 07/19/18 at 09:00 Chlordiazepoxide (Librium) 50 mg TID PO Last administered on 07/21/18 13:52; Admin Dose 50 MG; Start 07/19/18 at 09:00 Pentoxifylline (Trental) 400 mg TID PO Last administered on 07/21/18 13:52; Admin Dose 400 MG; Start 07/19/18 at 13:00; Stop 08/16/18 at 12:59 Potassium Chloride 40 meq/ Sodium Chloride 1,000 ml @ 125 mls/hr Q8H IV Last administered on 07/21/18 11:53; Admin Dose 125 MLS/HR; Start 07/20/18 at 12:30 Rifaximin (Xifaxan) 550 mg BID PO Last administered on 07/21/18 08:16; Admin Dose 550 MG; Start 07/20/18 at 21:00 Morphine Sulfate (morphine) 2 mg Q4H PRN IV SEVERE PAIN LEVEL 7-10 Last administered on 07/21/18 14:41; Admin Dose 2 MG; Start 07/20/18 at 22:30 Lactulose (Enulose) 20 gm DAILY PO ; Start 07/22/18 at 09:00 CELE MARTÍNEZ Jul 21, 2018 16:42
[2018-07-21] MEDS: LORAZEPAM 2 MG INJ IV PRN (17:50)
[2018-07-21 20:00] VITALS: BP 121/67; PULSE 104; RESP 17
[2018-07-22 02:13] VITALS: BP 130/72; PULSE 109; RESP 20
[2018-07-22] MEDS: morphine 2 MG INJ IV PRN ×2 (03:01→20:13)
[2018-07-22] MEDS: PANTOPRAZOLE (EC) 40 MG TAB PO SCH (05:04)
[2018-07-22] MEDS: PIPER-TAZO 3.375 GM IV (PMX) 100 ML IVPB SCH ×3 (05:04→18:11)
[2018-07-22] MEDS: POTASSIUM CHLORIDE 40 MEQ in SOD CHLORIDE 0.9% 1,000 ML IV SCH ×3 (05:04→20:14)
[2018-07-22 08:04] VITALS: BP 114/58; PULSE 98; RESP 20
[2018-07-22] MEDS: PENTOXIFYLLINE (SR) 400 MG TAB PO SCH ×3 (09:09→20:14)
[2018-07-22] MEDS: RIFAXIMIN 550 MG TAB PO SCH ×2 (09:09→20:14)
[2018-07-22] MEDS: LACTULOSE 30ML CUP PO SCH (09:09)
[2018-07-22] MEDS: CHLORDIAZEPOXIDE 25 MG CAP PO SCH ×3 (09:09→20:14)
[2018-07-22] MEDS: MULTIVITAMINS 10 ML, THIAMINE 100 MG, FOLIC ACID 1 MG in SOD CHLORIDE 0.9% 1,000 ML IVPB SCH (11:17)
--- NOTE | 2018-07-22 13:03 | PN ---
Date/Time of Note Date/Time of Note DATE: 07/22/18 TIME: 12:56 Assessment/Plan VTE Prophylaxis Risk score (from Nsg)>0 risk: 2 SCD applied (from Nsg): Yes Pharmacological prophylaxis: other (scds) Lines/Catheters IV Catheter Type (from [facility]): Peripheral IV Assessment/Plan Hospital Course Assessment: Alcoholic hepatitis- (Discriminant function is 44.2) Coagulopathy Thrombocytopenia- improving Direct Hyperbilirubinemia- likely 2/2 to liver disease - Imaging shows no intra or extrahepatic biliary dilatation is seen. The common bile duct measures 5.8 mm Hepatic encephalopathy- resolved Diverticulitis- on Zosyn Alcohol abuse Plan: MRCP- to r/o CBD obstruction- however elevated in bilirubin likely 2/2 to liver disease plan for EGD tomorrow r/o EV- spoke to patient POA for both EGD/MRCP- Margarita cunningham - reviewed risks/benefits- she verbalized understanding and is agreeable to both MRCP and EGD Continue Zosyn for diverticulitis Pt with increased BLE edema- will start lasix 20mg /spirolactone 50mg - if able to maggie plan to increase to 100 Monitor labs, Transfuse for hemoglobin less than 7.5 Patient seen in collaboration with Subjective: Course reviewed with nursing staff Patient interviewed and examined All labs, imaging and other results reviewed BM 3-4 with daily lactulose- discussed with patient plan for MRCP today- he verbalized understanding and plan for EGD tomorrow. Currently he denies n/v or abd pain, c/o BLE edema, and feeling tired as he feels like people wake him up every 5 min Started diuretic- monitor labs closely PHYSICAL EXAMINATION: GENERAL: Well developed, well nourished, a&o x3, in no acute distress SKIN: No lesions, profound jaundice, no evidence of bleeding diathesis CHEST: Inspection within normal limits. CARDIOVASCULAR: Heart: Regular rate and rhythm RESPIRATORY: Lungs clear to auscultation GASTROINTESTINAL AND LIVER: Abdomen: Soft, non tenderness, non-distended, no hernias, no masses, no organomegaly, no ascites, no guarding, no rebound tenderness, normoactive bowel sounds. Rectal: Deferred. GENITOURINARY: Male genitalia within normal limits. EXTREMITIES: No cyanosis, lower extremity edema. Result Diagram: 07/22/18 0515 07/22/18 0515 Results 24hrs Laboratory Tests Test 07/22/18 05:15 White Blood Count 8.3 # Red Blood Count 3.15 L Hemoglobin 10.8 L Hematocrit 29.7 L Mean Corpuscular Volume 94.3 Mean Corpuscular Hemoglobin 34.3 H Mean Corpuscular Hemoglobin Concent 36.4 Red Cell Distribution Width 17.7 H Platelet Count 148 # Mean Platelet Volume 11.3 H Immature Granulocytes % 1.300 H Neutrophils % 63.8 Lymphocytes % 11.1 L Monocytes % 20.9 H Eosinophils % 1.8 Basophils % 1.1 Nucleated Red Blood Cells % 0.0 Immature Granulocytes # 0.110 H Neutrophils # 5.3 Lymphocytes # 0.9 Monocytes # 1.7 H Eosinophils # 0.2 Basophils # 0.1 Nucleated Red Blood Cells # 0.0 Prothrombin Time 16.0 #H Prothrombin Time Ratio 1.3 INR International Normalized Ratio 1.27 Sodium Level 131 L Potassium Level 3.6 Chloride Level 96 L Carbon Dioxide Level 21 Anion Gap 14 H Blood Urea Nitrogen 6 L Creatinine 0.58 L Est Glomerular Filtrat Rate mL/min > 60 Glucose Level 89 Calcium Level 7.8 L Total Bilirubin 23.8 H Direct Bilirubin 19.20 *H Indirect Bilirubin 4.6 H Aspartate Amino Transf (AST/SGOT) 145 H Alanine Aminotransferase (ALT/SGPT) 58 Alkaline Phosphatase 159 H Total Protein 6.4 Albumin 2.5 L Globulin 3.90 H Albumin/Globulin Ratio 0.64 Exam/Review of Systems Exam Vitals Vital Signs Date Temp Pulse Resp B/P (MAP) Pulse Ox O2 O2 Flow FiO2 Time Delivery Rate 07/22/18 97.9 98 20 114/58 97 08:04 (76) Intake and Output 07/21/18 07/21/18 07/22/18 1515:00 23:00 07:00 IntakeIntake Total 540 ml 3156.2 ml 645 ml BalanceBalance 540 ml 3156.2 ml 645 ml Results Results 24hrs Laboratory Tests Test 07/22/18 05:15 White Blood Count 8.3 # Red Blood Count 3.15 L Hemoglobin 10.8 L Hematocrit 29.7 L Mean Corpuscular Volume 94.3 Mean Corpuscular Hemoglobin 34.3 H Mean Corpuscular Hemoglobin Concent 36.4 Red Cell Distribution Width 17.7 H Platelet Count 148 # Mean Platelet Volume 11.3 H Immature Granulocytes % 1.300 H Neutrophils % 63.8 Lymphocytes % 11.1 L Monocytes % 20.9 H Eosinophils % 1.8 Basophils % 1.1 Nucleated Red Blood Cells % 0.0 Immature Granulocytes # 0.110 H Neutrophils # 5.3 Lymphocytes # 0.9 Monocytes # 1.7 H Eosinophils # 0.2 Basophils # 0.1 Nucleated Red Blood Cells # 0.0 Prothrombin Time 16.0 #H Prothrombin Time Ratio 1.3 INR International Normalized Ratio 1.27 Sodium Level 131 L Potassium Level 3.6 Chloride Level 96 L Carbon Dioxide Level 21 Anion Gap 14 H Blood Urea Nitrogen 6 L Creatinine 0.58 L Est Glomerular Filtrat Rate mL/min > 60 Glucose Level 89 Calcium Level 7.8 L Total Bilirubin 23.8 H Direct Bilirubin 19.20 *H Indirect Bilirubin 4.6 H Aspartate Amino Transf (AST/SGOT) 145 H Alanine Aminotransferase (ALT/SGPT) 58 Alkaline Phosphatase 159 H Total Protein 6.4 Albumin 2.5 L Globulin 3.90 H Albumin/Globulin Ratio 0.64 Medications Medication Current Medications IV Flush (NS 3 ml) 3 ml PER PROTOCOL IV ; Start 07/18/18 at 22:30 Lorazepam (Ativan) 0.5 mg Q6H PRN IV .ANXIETY Last administered on 07/21/18at 17:50; Admin Dose 0.5 MG; Start 07/18/18 at 22:30 Acetaminophen (Tylenol Tab) 650 mg Q6H PRN PO .PAIN 1-3 OR TEMP Last administered on 07/20/18at 20:14; Admin Dose 650 MG; Start 07/18/18 at 22:30 Piperacillin Sod/ Tazobactam Sod 100 ml @ 200 mls/hr Q6 IVPB Last administered on 07/22/18at 11:17; Admin Dose 200 MLS/HR; Start 07/19/18 at 06:00 Pantoprazole (Protonix Tab) 40 mg DAILY@06 PO Last administered on 07/22/18at 05:04; Admin Dose 40 MG; Start 07/19/18 at 06:00 Multivitamins 10 ml/Thiamine HCl 100 mg/Folic Acid 1 mg/Sodium Chloride 1,011.2 ml @ 125 mls/ hr DAILY@09 IVPB Last administered on 07/22/18at 11:17; Admin Dose 125 MLS/HR; Start 07/19/18 at 09:00 Chlordiazepoxide (Librium) 50 mg TID PO Last administered on 07/22/18 09:09; Admin Dose 50 MG; Start 07/19/18 at 09:00 Pentoxifylline (Trental) 400 mg TID PO Last administered on 07/22/18 09:09; Admin Dose 400 MG; Start 07/19/18 at 13:00; Stop 08/16/18 at 12:59 Potassium Chloride 40 meq/ Sodium Chloride 1,000 ml @ 125 mls/hr Q8H IV Last administered on 07/22/18 05:04; Admin Dose 125 MLS/HR; Start 07/20/18 at 12:30 Rifaximin (Xifaxan) 550 mg BID PO Last administered on 07/22/18 09:09; Admin Dose 550 MG; Start 07/20/18 at 21:00 Morphine Sulfate (morphine) 2 mg Q4H PRN IV SEVERE PAIN LEVEL 7-10 Last administered on 07/22/18 03:01; Admin Dose 2 MG; Start 07/20/18 at 22:30 Lactulose (Enulose) 20 gm DAILY PO Last administered on 07/22/18 09:09; Admin Dose 20 GM; Start 07/22/18 at 09:00 TAYLOR PLEITEZ Jul 22, 2018 13:03
[2018-07-22] MEDS: FUROSEMIDE 20 MG TAB PO SCH (13:28)
--- NOTE | 2018-07-22 13:53 | PN ---
Date/Time of Note Date/Time of Note DATE: 07/22/18 TIME: 13:41 Assessment/Plan VTE Prophylaxis Risk score (from [facility] [place] [facility])>0 risk: 2 SCD applied (from [facility] [place]): Yes Pharmacological prophylaxis: NA/contraindicated Pharm contraindication: blood coag disorder Lines/Catheters IV Catheter Type (from [facility]): Peripheral IV Assessment/Plan Assessment/Plan 1. Alcoholic liver disease, on banana bag 2. Hepatic encephalopathy- resolved, on lactulose and rifaximin 3. Jaundice from alcoholic liver disease, MRCP ordered to r/o obstructive for high direct yomi 4. Coagulopathy 5. Normocytic anemia, chronic, stable H/H 6. Thrombocytopenia- improved 7. Diverticulitis- on Zosyn Result Diagram: 07/22/1815 07/22/18 0515 Results 24hrs Laboratory Tests Test 07/22/18 05:15 White Blood Count 8.3 # Red Blood Count 3.15 L Hemoglobin 10.8 L Hematocrit 29.7 L Mean Corpuscular Volume 94.3 Mean Corpuscular Hemoglobin 34.3 H Mean Corpuscular Hemoglobin Concent 36.4 Red Cell Distribution Width 17.7 H Platelet Count 148 # Mean Platelet Volume 11.3 H Immature Granulocytes % 1.300 H Neutrophils % 63.8 Lymphocytes % 11.1 L Monocytes % 20.9 H Eosinophils % 1.8 Basophils % 1.1 Nucleated Red Blood Cells % 0.0 Immature Granulocytes # 0.110 H Neutrophils # 5.3 Lymphocytes # 0.9 Monocytes # 1.7 H Eosinophils # 0.2 Basophils # 0.1 Nucleated Red Blood Cells # 0.0 Prothrombin Time 16.0 #H Prothrombin Time Ratio 1.3 INR International Normalized Ratio 1.27 Sodium Level 131 L Potassium Level 3.6 Chloride Level 96 L Carbon Dioxide Level 21 Anion Gap 14 H Blood Urea Nitrogen 6 L Creatinine 0.58 L Est Glomerular Filtrat Rate mL/min > 60 Glucose Level 89 Calcium Level 7.8 L Total Bilirubin 23.8 H Direct Bilirubin 19.20 *H Indirect Bilirubin 4.6 H Aspartate Amino Transf (AST/SGOT) 145 H Alanine Aminotransferase (ALT/SGPT) 58 Alkaline Phosphatase 159 H Total Protein 6.4 Albumin 2.5 L Globulin 3.90 H Albumin/Globulin Ratio 0.64 Subjective 24 Hr Interval Summary Free Text/Dictation pain on feet Exam/Review of Systems Exam Vitals Vital Signs Date Temp Pulse Resp B/P (MAP) Pulse Ox O2 O2 Flow FiO2 Time Delivery Rate 07/22/18 97.9 98 20 114/58 97 08:04 (76) Intake and Output 07/21/18 07/21/18 07/22/18 1515:00 23:00 07:00 IntakeIntake Total 540 ml 3156.2 ml 645 ml BalanceBalance 540 ml 3156.2 ml 645 ml Constitutional: alert, oriented Head: normocephalic Eyes: EOMI, nl lids, PERRL ENMT: nl external ears & nose, nl lips & teeth, nl nasal mucosa & septum Neck: supple Respiratory: clear to auscultation, normal air movement; No congested cough, No crackles/rales, No diminished breath sounds, No intercostal retraction, No labored breathing, No respirations, No tactile fremitus, No wheezing, No other Cardiovascular: regular rate and rhythm, nl pulses; No bruits, No diastolic murmur, No edema, No gallop, No irregular rhythm, No jugular venous distention (JVD), No murmurs/extra sounds, No rub, No systolic murmur, No S3, No S4, No other Gastrointestinal: nl liver, spleen, distended Extremities: edema Neurological: GUIDANCE AND CONTROL SYSTEM ENGINEER II-XII intact, nl mental status, nl speech Results Results 24hrs Laboratory Tests Test 07/22/18 05:15 White Blood Count 8.3 # Red Blood Count 3.15 L Hemoglobin 10.8 L Hematocrit 29.7 L Mean Corpuscular Volume 94.3 Mean Corpuscular Hemoglobin 34.3 H Mean Corpuscular Hemoglobin Concent 36.4 Red Cell Distribution Width 17.7 H Platelet Count 148 # Mean Platelet Volume 11.3 H Immature Granulocytes % 1.300 H Neutrophils % 63.8 Lymphocytes % 11.1 L Monocytes % 20.9 H Eosinophils % 1.8 Basophils % 1.1 Nucleated Red Blood Cells % 0.0 Immature Granulocytes # 0.110 H Neutrophils # 5.3 Lymphocytes # 0.9 Monocytes # 1.7 H Eosinophils # 0.2 Basophils # 0.1 Nucleated Red Blood Cells # 0.0 Prothrombin Time 16.0 #H Prothrombin Time Ratio 1.3 INR International Normalized Ratio 1.27 Sodium Level 131 L Potassium Level 3.6 Chloride Level 96 L Carbon Dioxide Level 21 Anion Gap 14 H Blood Urea Nitrogen 6 L Creatinine 0.58 L Est Glomerular Filtrat Rate mL/min > 60 Glucose Level 89 Calcium Level 7.8 L Total Bilirubin 23.8 H Direct Bilirubin 19.20 *H Indirect Bilirubin 4.6 H Aspartate Amino Transf (AST/SGOT) 145 H Alanine Aminotransferase (ALT/SGPT) 58 Alkaline Phosphatase 159 H Total Protein 6.4 Albumin 2.5 L Globulin 3.90 H Albumin/Globulin Ratio 0.64 Medications Medication Current Medications IV Flush (NS 3 ml) 3 ml PER PROTOCOL IV ; Start 07/18/18 at 22:30 Lorazepam (Ativan) 0.5 mg Q6H PRN IV .ANXIETY Last administered on 07/21/18 17:50; Admin Dose 0.5 MG; Start 07/18/18 at 22:30 Acetaminophen (Tylenol Tab) 650 mg Q6H PRN PO .PAIN 1-3 OR TEMP Last administered on 07/20/18 20:14; Admin Dose 650 MG; Start 07/18/18 at 22:30 Piperacillin Sod/ Tazobactam Sod 100 ml @ 200 mls/hr Q6 IVPB Last administered on 07/22/18 11:17; Admin Dose 200 MLS/HR; Start 07/19/18 at 06:00 Pantoprazole (Protonix Tab) 40 mg DAILY@06 PO Last administered on 07/22/18 05:04; Admin Dose 40 MG; Start 07/19/18 at 06:00 Multivitamins 10 ml/Thiamine HCl 100 mg/Folic Acid 1 mg/Sodium Chloride 1,011.2 ml @ 125 mls/ hr DAILY@09 IVPB Last administered on 07/22/18at 11:17; Admin Dose 125 MLS/HR; Start 07/19/18 at 09:00 Chlordiazepoxide (Librium) 50 mg TID PO Last administered on 07/22/18 13:24; Admin Dose 50 MG; Start 07/19/18 at 09:00 Pentoxifylline (Trental) 400 mg TID PO Last administered on 07/22/18 13:24; Admin Dose 400 MG; Start 07/19/18 at 13:00; Stop 08/16/18 at 12:59 Potassium Chloride 40 meq/ Sodium Chloride 1,000 ml @ 125 mls/hr Q8H IV Last administered on 07/22/18 05:04; Admin Dose 125 MLS/HR; Start 07/20/18 at 12:30 Rifaximin (Xifaxan) 550 mg BID PO Last administered on 07/22/18 09:09; Admin Dose 550 MG; Start 07/20/18 at 21:00 Morphine Sulfate (morphine) 2 mg Q4H PRN IV SEVERE PAIN LEVEL 7-10 Last adminis tered on 07/22/18 03:01; Admin Dose 2 MG; Start 07/20/18 at 22:30 Lactulose (Enulose) 20 gm DAILY PO Last administered on 07/22/18 09:09; Admin Dose 20 GM; Start 07/22/18 at 09:00 Spironolactone (Aldactone) 50 mg DAILY PO ; Start 07/22/18 at 13:00 Furosemide (Lasix) 20 mg DAILY PO Last administered on 07/22/18 13:28; Admin Dose 20 MG; Start 07/22/18 at 13:00 MELY CONNER MD Jul 22, 2018 13:51
[2018-07-22] MEDS: SPIRONOLACTONE 50 MG TAB PO SCH (13:54)
[2018-07-22 14:23] VITALS: BP 105/66; PULSE 85; RESP 16
[2018-07-22 20:29] VITALS: BP 116/57; PULSE 100; RESP 18
[2018-07-23] VITALS (17 sets, daily range): BP systolic 102–132; BP diastolic 57–68; PULSE 76–99; RESP 8–22
[2018-07-23] MEDS: PIPER-TAZO 3.375 GM IV (PMX) 100 ML IVPB SCH ×4 (00:25→19:45)
[2018-07-23] MEDS: morphine 2 MG INJ IV PRN ×2 (00:25→12:28)
[2018-07-23] MEDS: PANTOPRAZOLE (EC) 40 MG TAB PO SCH (05:10)
[2018-07-23] MEDS: POTASSIUM CHLORIDE 40 MEQ in SOD CHLORIDE 0.9% 1,000 ML IV SCH ×2 (05:39→12:30)
[2018-07-23] MEDS: LACTULOSE 30ML CUP PO SCH (09:00)
[2018-07-23] MEDS: PENTOXIFYLLINE (SR) 400 MG TAB PO SCH ×3 (09:00→21:08)
[2018-07-23] MEDS: CHLORDIAZEPOXIDE 25 MG CAP PO SCH ×3 (09:00→21:08)
[2018-07-23] MEDS: RIFAXIMIN 550 MG TAB PO SCH ×2 (09:00→21:07)
[2018-07-23] MEDS: MULTIVITAMINS 10 ML, THIAMINE 100 MG, FOLIC ACID 1 MG in SOD CHLORIDE 0.9% 1,000 ML IVPB SCH (09:20)
[2018-07-23] MEDS: FUROSEMIDE 20 MG TAB PO SCH (09:27)
[2018-07-23] MEDS: SPIRONOLACTONE 50 MG TAB PO SCH (09:27)
--- NOTE | 2018-07-23 11:31 | PN ---
Date/Time of Note Date/Time of Note DATE: 07/23/18 TIME: 11:28 Assessment/Plan VTE Prophylaxis Risk score (from [facility])>0 risk: 1 SCD applied (from Ns): Yes Pharmacological prophylaxis: NA/contraindicated Pharm contraindication: blood coag disorder Lines/Catheters IV C[facility]ter Type (from [facility]): Peripheral IV Assessment/Plan Assessment/Plan 1. Alcoholic liver disease, on banana bag 2. Hepatic encephalopathy- resolved, on lactulose and rifaximin 3. Jaundice from alcoholic liver disease, follow up with MRCP 4. Coagulopathy due to liver disease 5. Normocytic anemia, chronic, stable H/H 6. Thrombocytopenia- improved 7. Diverticulitis- on Zosyn Result Diagram: 07/23/18 0503 07/23/18 0503 Results 24hrs Laboratory Tests Test 07/23/18 05:03 White Blood Count 7.1 Red Blood Count 3.08 L Hemoglobin 10.7 L Hematocrit 29.3 L Mean Corpuscular Volume 95.1 Mean Corpuscular Hemoglobin 34.7 H Mean Corpuscular Hemoglobin Concent 36.5 Red Cell Distribution Width 18.1 H Platelet Count 151 Mean Platelet Volume 11.6 H Immature Granulocytes % 1.500 H Neutrophils % 69.5 Lymphocytes % 10.5 L Monocytes % 16.0 H Eosinophils % 1.7 Basophils % 0.8 Nucleated Red Blood Cells % 0.0 Immature Granulocytes # 0.110 H Neutrophils # 4.9 Lymphocytes # 0.8 Monocytes # 1.1 H Eosinophils # 0.1 Basophils # 0.1 Nucleated Red Blood Cells # 0.0 Sodium Level 131 L Potassium Level 3.5 Chloride Level 95 L Carbon Dioxide Level 22 Anion Gap 14 H Blood Urea Nitrogen 6 L Creatinine 0.62 Est Glomerular Filtrat Rate mL/min > 60 Glucose Level 85 Calcium Level 8.0 L Total Bilirubin 22.8 H Direct Bilirubin 17.90 *H Indirect Bilirubin 4.9 H Aspartate Amino Transf (AST/SGOT) 146 H Alanine Aminotransferase (ALT/SGPT) 57 Alkaline Phosphatase 156 H Total Protein 6.3 Albumin 2.4 L Globulin 3.90 H Albumin/Globulin Ratio 0.61 Subjective 24 Hr Interval Summary Free Text/Dictation afebrile. MRCP today Exam/Review of Systems Exam Vitals Vital Signs Date Temp Pulse Resp B/P (MAP) Pulse Ox O2 O2 Flow FiO2 Time Delivery Rate 07/23/18 98.0 93 20 132/57 97 07:25 (82) Intake and Output 07/22/18 07/22/18 07/23/18 1515:00 23:00 07:00 IntakeIntake Total 340 ml 1545 ml 1420 ml OutputOutput Total 650 ml 900 ml BalanceBalance -310 ml 645 ml 1420 ml Constitutional: alert, oriented, well developed Head: normocephalic, atraumatic Eyes: nl conjunctiva, EOMI, nl lids, PERRL ENMT: nl external ears & nose, nl lips & teeth, nl nasal mucosa & septum Neck: supple, non-tender Respiratory: clear to auscultation, normal air movement; No congested cough, No crackles/rales, No diminished breath sounds, No intercostal retraction, No labored breathing, No respirations, No tactile fremitus, No wheezing, No other Cardiovascular: regular rate and rhythm, nl pulses; No bruits, No diastolic murmur, No edema, No gallop, No irregular rhythm, No jugular venous distention (JVD), No murmurs/extra sounds, No rub, No systolic murmur, No S3, No S4, No other Gastrointestinal: soft, nl liver, spleen Musculoskeletal: nl extremities to inspection Extremities: normal pulses; No calf tenderness, No cyanosis, No clubbing, No edema, No pitting pedal edema, No palpable cord, No tenderness, No other Neurological: BIBLE READER II-XII intact, nl mental status, nl speech, nl strength Skin: other (jaundice) Results Results 24hrs Laboratory Tests Test 07/23/18 05:03 White Blood Count 7.1 Red Blood Count 3.08 L Hemoglobin 10.7 L Hematocrit 29.3 L Mean Corpuscular Volume 95.1 Mean Corpuscular Hemoglobin 34.7 H Mean Corpuscular Hemoglobin Concent 36.5 Red Cell Distribution Width 18.1 H Platelet Count 151 Mean Platelet Volume 11.6 H Immature Granulocytes % 1.500 H Neutrophils % 69.5 Lymphocytes % 10.5 L Monocytes % 16.0 H Eosinophils % 1.7 Basophils % 0.8 Nucleated Red Blood Cells % 0.0 Immature Granulocytes # 0.110 H Neutrophils # 4.9 Lymphocytes # 0.8 Monocytes # 1.1 H Eosinophils # 0.1 Basophils # 0.1 Nucleated Red Blood Cells # 0.0 Sodium Level 131 L Potassium Level 3.5 Chloride Level 95 L Carbon Dioxide Level 22 Anion Gap 14 H Blood Urea Nitrogen 6 L Creatinine 0.62 Est Glomerular Filtrat Rate mL/min > 60 Glucose Level 85 Calcium Level 8.0 L Total Bilirubin 22.8 H Direct Bilirubin 17.90 *H Indirect Bilirubin 4.9 H Aspartate Amino Transf (AST/SGOT) 146 H Alanine Aminotransferase (ALT/SGPT) 57 Alkaline Phosphatase 156 H Total Protein 6.3 Albumin 2.4 L Globulin 3.90 H Albumin/Globulin Ratio 0.61 Medications Medication Current Medications IV Flush (NS 3 ml) 3 ml PER PROTOCOL IV ; Start 07/18/18 at 22:30 Lorazepam (Ativan) 0.5 mg Q6H PRN IV .ANXIETY Last administered on 07/21/18at 17:50; Admin Dose 0.5 MG; Start 07/18/18 at 22:30 Acetaminophen (Tylenol Tab) 650 mg Q6H PRN PO .PAIN 1-3 OR TEMP Last administered on 07/20/18at 20:14; Admin Dose 650 MG; Start 07/18/18 at 22:30 Piperacillin Sod/ Tazobactam Sod 100 ml @ 200 mls/hr Q6 IVPB Last administered on 07/23/18 05:34; Admin Dose 200 MLS/HR; Start 07/19/18 at 06:00 Pantoprazole (Protonix Tab) 40 mg DAILY@06 PO Last administered on 07/22/18 05:04; Admin Dose 40 MG; Start 07/19/18 at 06:00 Multivitamins 10 ml/Thiamine HCl 100 mg/Folic Acid 1 mg/Sodium Chloride 1,011.2 ml @ 125 mls/ hr DAILY@09 IVPB Last administered on 07/23/18 09:20; Admin Dose 125 MLS/HR; Start 07/19/18 at 09:00 Chlordiazepoxide (Librium) 50 mg TID PO Last administered on 07/22/18at 20:14; Admin Dose 50 MG; Start 07/19/18 at 09:00 Pentoxifylline (Trental) 400 mg TID PO Last administered on 07/22/18at 20:14; Admin Dose 400 MG; Start 07/19/18 at 13:00; Stop 08/16/18 at 12:59 Potassium Chloride 40 meq/ Sodium Chloride 1,000 ml @ 125 mls/hr Q8H IV Last administered on 07/23/18 05:39; Admin Dose 125 MLS/HR; Start 07/20/18 at 12:30 Rifaximin (Xifaxan) 550 mg BID PO Last administered on 07/22/18 20:14; Admin Dose 550 MG; Start 07/20/18 at 21:00 Morphine Sulfate (morphine) 2 mg Q4H PRN IV SEVERE PAIN LEVEL 7-10 Last administered on 07/23/18 00:25; Admin Dose 2 MG; Start 07/20/18 at 22:30 Lactulose (Enulose) 20 gm DAILY PO Last administered on 07/22/18 09:09; Admin Dose 20 GM; Start 07/22/18 at 09:00 Spironolactone (Aldactone) 50 mg DAILY PO Last administered on 07/23/18 09:27; Admin Dose 50 MG; Start 07/22/18 at 13:00 Furosemide (Lasix) 20 mg DAILY PO Last administered on 07/23/18 09:27; Admin Dose 20 MG; Start 07/22/18 at 13:00 MELY CONNER MD Jul 23, 2018 11:31
--- NOTE | 2018-07-23 17:44 | PREAC ---
Date/Time of Note Date/Time of Note DATE: 07/23/18 TIME: 17:43 Anesthesia Eval and Record Evaluation Time Pre-Procedure Interview DATE: 07/23/18 TIME: 17:43 Age 43 Sex male NPO: 8 hrs Preoperative diagnosis Esophageal varices Planned procedure EGD Past Medical History Past Medical History: Includes Cardio: HTN Hepatic: Alcohol abuse, Cirrhosis GI: Obesity Heme: Anemia Psych: Depression, Anxiety Recreational drugs: Other (Vicodin) Surgery & Anesthesia Issues No known issue Meds Anticoagulation: No Beta Armaan within 24 hr: No Reason Beta Armaan not given: Pt. not on B-Armaan Current Medications IV Flush (NS 3 ml) 3 ml PER PROTOCOL IV ; Start 07/18/18 at 22:30 Lorazepam (Ativan) 0.5 mg Q6H PRN IV .ANXIETY Last administered on 07/21/18at 17:50; Admin Dose 0.5 MG; Start 07/18/18 at 22:30 Acetaminophen (Tylenol Tab) 650 mg Q6H PRN PO .PAIN 1-3 OR TEMP Last administered on 07/20/18at 20:14; Admin Dose 650 MG; Start 07/18/18 at 22:30 Piperacillin Sod/ Tazobactam Sod 100 ml @ 200 mls/hr Q6 IVPB Last administered on 07/23/18at 11:56; Admin Dose 200 MLS/HR; Start 07/19/18 at 06:00 Pantoprazole (Protonix Tab) 40 mg DAILY@06 PO Last administered on 07/22/18at 05:04; Admin Dose 40 MG; Start 07/19/18 at 06:00 Multivitamins 10 ml/Thiamine HCl 100 mg/Folic Acid 1 mg/Sodium Chloride 1,011.2 ml @ 125 mls/ hr DAILY@09 IVPB Last administered on 07/23/18at 09:20; Admin Dose 125 MLS/HR; Start 07/19/18 at 09:00 Chlordiazepoxide (Librium) 50 mg TID PO Last administered on 07/22/18at 20:14; Admin Dose 50 MG; Start 07/19/18 at 09:00 Pentoxifylline (Trental) 400 mg TID PO Last administered on 07/22/18at 20:14; Admin Dose 400 MG; Start 07/19/18 at 13:00; Stop 08/16/18 at 12:59 Potassium Chloride 40 meq/ Sodium Chloride 1,000 ml @ 125 mls/hr Q8H IV Last administered on 07/23/18 05:39; Admin Dose 125 MLS/HR; Start 07/20/18 at 12:30 Rifaximin (Xifaxan) 550 mg BID PO Last administered on 07/22/18at 20:14; Admin Dose 550 MG; Start 07/20/18 at 21:00 Morphine Sulfate (morphine) 2 mg Q4H PRN IV SEVERE PAIN LEVEL 7-10 Last administered on 07/23/18 12:28; Admin Dose 2 MG; Start 07/20/18 at 22:30 Lactulose (Enulose) 20 gm DAILY PO Last administered on 07/22/18 09:09; Admin Dose 20 GM; Start 07/22/18 at 09:00 Spironolactone (Aldactone) 50 mg DAILY PO Last administered on 07/23/18 09:27; Admin Dose 50 MG; Start 07/22/18 at 13:00 Furosemide (Lasix) 20 mg DAILY PO Last administered on 07/23/18 09:27; Admin Dose 20 MG; Start 07/22/18 at 13:00 Meds reviewed: Yes Allergies Coded Allergies: risperidone (Verified Allergy, Severe, STOMACH REACTION, FACE LOCKS UP, 07/18/18) Allergies Reviewed: Yes Labs/Studies Labs Reviewed: Reviewed by anesthesiologist Result Diagram: 07/23/18 0503 07/23/18 0503 Laboratory Tests 07/23/18 05:03 test: N/A Pre-procedure Exam Last vitals Vital Signs Date Temp Pulse Resp B/P (MAP) Pulse Ox O2 O2 Flow FiO2 Time Delivery Rate 07/23/18 97.7 81 20 113/66 97 Room Air 17:37 (82) Airway: Adequate mouth opening Mallampati: Mallampati II Teeth: Normal Lung: Normal Heart: Normal ASA Physical Status ASA physical status: 3 Emergency: None Planned Anesthetic General/MAC: MAC Planned Pain Management Parenteral pain med Pre-operative Attestations Prior to commencing anesthesia and surgery, the patient was re-evaluated, there was verification of: *The patient's identity *The results of appropriate recent lab work and preoperative vital signs *The above evaluation not changing prior to induction *Anesthetic plan, risk benefits, alternative and complications discussed with patient/family; questions answered; patient/family understands, accepts and wishes to proceed. PILAR CHADWICK MD Jul 23, 2018 17:44
--- NOTE | 2018-07-23 17:48 | HPN ---
Date/Time of Note Date/Time of Note DATE: 07/23/18 TIME: 17:48 Interval H&P Admission Note Pt. seen H&P reviewed: No system changes LOUISE MUNOZ Jul 23, 2018 17:48
[2018-07-23] MEDS ORDERED: PROPOFOL 20 ML ONE (18:04)
--- NOTE | 2018-07-23 19:12 | PAC ---
Date/Time of Note Date/Time of Note DATE: 07/23/18 TIME: 19:12 Post-Anesthesia Notes Post-Anesthesia Note Last documented vital signs Vital Signs Date Temp Pulse Resp B/P (MAP) Pulse Ox O2 O2 Flow FiO2 Time Delivery Rate 07/23/18 98.0 86 18 106/61 100 Room Air 8.0 18:01 (76) Mask Activity: WNL Respiratory function: WNL Cardiovascular function: WNL Mental status: Baseline Pain reasonably controlled: Yes Hydration appropriate: Yes Nausea/Vomiting absent: Yes PILAR CHADWICK MD Jul 23, 2018 19:12
[2018-07-23] MEDS: morphine LIQ (10 MG/5 ML) CUP PO PRN (21:12)
[2018-07-24] MEDS: PIPER-TAZO 3.375 GM IV (PMX) 100 ML IVPB SCH ×4 (00:03→17:46)
[2018-07-24] MEDS: POTASSIUM CHLORIDE 40 MEQ in SOD CHLORIDE 0.9% 1,000 ML IV SCH ×4 (00:03→21:12)
[2018-07-24 01:54] VITALS: BP 119/63; PULSE 76; RESP 18
[2018-07-24] MEDS: PANTOPRAZOLE (EC) 40 MG TAB PO SCH (05:19)
[2018-07-24 07:27] VITALS: BP 121/67; PULSE 94; RESP 18
[2018-07-24] MEDS: LACTULOSE 30ML CUP PO SCH (08:40)
[2018-07-24] MEDS: SPIRONOLACTONE 50 MG TAB PO SCH (08:40)
[2018-07-24] MEDS: MULTIVITAMINS 10 ML, THIAMINE 100 MG, FOLIC ACID 1 MG in SOD CHLORIDE 0.9% 1,000 ML IVPB SCH (08:40)
[2018-07-24] MEDS: CHLORDIAZEPOXIDE 25 MG CAP PO SCH ×3 (08:41→20:23)
[2018-07-24] MEDS: FUROSEMIDE 20 MG TAB PO SCH (08:41)
[2018-07-24] MEDS: morphine LIQ (10 MG/5 ML) CUP PO PRN ×3 (08:42→20:23)
[2018-07-24] MEDS: RIFAXIMIN 550 MG TAB PO SCH ×2 (08:42→20:23)
[2018-07-24] MEDS: PENTOXIFYLLINE (SR) 400 MG TAB PO SCH ×3 (08:54→20:23)
[2018-07-24] MEDS ORDERED: POTASSIUM CHLORIDE (SR) 20 MEQ TAB PO STA (14:16)
[2018-07-24 14:22] VITALS: BP 122/69; PULSE 104; RESP 18
--- NOTE | 2018-07-24 14:22 | PN ---
Date/Time of Note Date/Time of Note DATE: 07/24/18 TIME: 14:17 Assessment/Plan VTE [place] [facility] [place]: 3 [place] [facility] [place] Yes Pharmacological prophylaxis: NA/contraindicated Pharm contraindication: blood coag disorder Lines/Catheters IV Catheter Type (from [facility]): Peripheral IV Assessment/Plan Assessment/Plan 1. Alcoholism with alcoholic liver disease, on banana bag, no withdrawal symptoms 2. Hepatic encephalopathy- resolved, on lactulose and rifaximin 3. Jaundice from alcoholic liver disease 4. Coagulopathy due to liver disease 5. Normocytic anemia, chronic, stable H/H 6. Thrombocytopenia- improved 7. Diverticulitis- on Zosyn 8. Hypokalemia, KCl Result Diagram: 07/24/186 07/24/18 0436 Results 24hrs Laboratory Tests Test 07/24/18 04:36 White Blood Count 6.2 Red Blood Count 3.20 L Hemoglobin 10.9 L Hematocrit 31.2 L Mean Corpuscular Volume 97.5 Mean Corpuscular Hemoglobin 34.1 H Mean Corpuscular Hemoglobin Concent 34.9 Red Cell Distribution Width 18.8 H Platelet Count 154 Mean Platelet Volume 11.0 H Immature Granulocytes % 1.300 H Neutrophils % 71.7 Lymphocytes % 11.7 L Monocytes % 12.0 H Eosinophils % 2.0 Basophils % 1.3 Nucleated Red Blood Cells % 0.0 Immature Granulocytes # 0.080 H Neutrophils # 4.4 Lymphocytes # 0.7 L Monocytes # 0.7 Eosinophils # 0.1 Basophils # 0.1 Nucleated Red Blood Cells # 0.0 Sodium Level 133 L Potassium Level 3.4 L Chloride Level 100 Carbon Dioxide Level 26 Anion Gap 7 Blood Urea Nitrogen 7 Creatinine 0.69 Est Glomerular Filtrat Rate mL/min > 60 Glucose Level 111 Calcium Level 8.3 L Total Bilirubin 23.7 H Direct Bilirubin 19.40 *H Indirect Bilirubin 4.3 H Aspartate Amino Transf (AST/SGOT) 174 H Alanine Aminotransferase (ALT/SGPT) 56 Alkaline Phosphatase 171 H Total Protein 6.2 Albumin 2.5 L Globulin 3.70 H Albumin/Globulin Ratio 0.67 Subjective 24 Hr Interval Summary Free Text/Dictation weak, no pain Exam/Review of Systems Exam Vitals Vital Signs Date Temp Pulse Resp B/P (MAP) Pulse Ox O2 O2 Flow FiO2 Time Delivery Rate 07/24/18 98.4 94 18 121/67 96 Room Air 07:27 (85) 07/23/18 8.0 18:01 Intake and Output 07/23/18 07/23/18 07/24/18 1515:00 23:00 07:00 IntakeIntake Total 800 ml 311.2 ml 2236.2 ml OutputOutput Total 700 ml BalanceBalance 800 ml -388.8 ml 2236.2 ml Constitutional: alert, oriented, well developed Head: normocephalic, atraumatic Eyes: nl conjunctiva, EOMI, nl lids, PERRL ENMT: nl external ears & nose, nl lips & teeth, nl nasal mucosa & septum Neck: supple, non-tender Respiratory: clear to auscultation, normal air movement Cardiovascular: regular rate and rhythm, nl pulses; No bruits, No diastolic murmur, No edema, No gallop, No irregular rhythm, No jugular venous distention (JVD), No murmurs/extra sounds, No rub, No systolic murmur, No S3, No S4, No other Gastrointestinal: soft, nl liver, spleen, non-tender Musculoskeletal: nl extremities to inspection Extremities: normal pulses, edema Neurological: [employer] WORKER II-XII intact, nl mental status, nl speech Results Results 24hrs Laboratory Tests Test 07/24/18 04:36 White Blood Count 6.2 Red Blood Count 3.20 L Hemoglobin 10.9 L Hematocrit 31.2 L Mean Corpuscular Volume 97.5 Mean Corpuscular Hemoglobin 34.1 H Mean Corpuscular Hemoglobin Concent 34.9 Red Cell Distribution Width 18.8 H Platelet Count 154 Mean Platelet Volume 11.0 H Immature Granulocytes % 1.300 H Neutrophils % 71.7 Lymphocytes % 11.7 L Monocytes % 12.0 H Eosinophils % 2.0 Basophils % 1.3 Nucleated Red Blood Cells % 0.0 Immature Granulocytes # 0.080 H Neutrophils # 4.4 Lymphocytes # 0.7 L Monocytes # 0.7 Eosinophils # 0.1 Basophils # 0.1 Nucleated Red Blood Cells # 0.0 Sodium Level 133 L Potassium Level 3.4 L Chloride Level 100 Carbon Dioxide Level 26 Anion Gap 7 Blood Urea Nitrogen 7 Creatinine 0.69 Est Glomerular Filtrat Rate mL/min > 60 Glucose Level 111 Calcium Level 8.3 L Total Bilirubin 23.7 H Direct Bilirubin 19.40 *H Indirect Bilirubin 4.3 H Aspartate Amino Transf (AST/SGOT) 174 H Alanine Aminotransferase (ALT/SGPT) 56 Alkaline Phosphatase 171 H Total Protein 6.2 Albumin 2.5 L Globulin 3.70 H Albumin/Globulin Ratio 0.67 Medications Medication Current Medications IV Flush (NS 3 ml) 3 ml PER PROTOCOL IV ; Start 07/18/18 at 22:30 Lorazepam (Ativan) 0.5 mg Q6H PRN IV .ANXIETY Last administered on 07/21/18at 17:50; Admin Dose 0.5 MG; Start 07/18/18 at 22:30 Acetaminophen (Tylenol Tab) 650 mg Q6H PRN PO .PAIN 1-3 OR TEMP Last administered on 07/20/18at 20:14; Admin Dose 650 MG; Start 07/18/18 at 22:30 Piperacillin Sod/ Tazobactam Sod 100 ml @ 200 mls/hr Q6 IVPB Last administered on 07/24/18at 12:13; Admin Dose 200 MLS/HR; Start 07/19/18 at 06:00 Pantoprazole (Protonix Tab) 40 mg DAILY@06 PO Last administered on 07/24/18at 05:19; Admin Dose 40 MG; Start 07/19/18 at 06:00 Multivitamins 10 ml/Thiamine HCl 100 mg/Folic Acid 1 mg/Sodium Chloride 1,011.2 ml @ 125 mls/ hr DAILY@09 IVPB Last administered on 07/24/18at 08:40; Admin Dose 125 MLS/HR; Start 07/19/18 at 09:00 Chlordiazepoxide (Librium) 50 mg TID PO Last administered on 07/24/18at 12:15; Admin Dose 50 MG; Start 07/19/18 at 09:00 Pentoxifylline (Trental) 400 mg TID PO Last administered on 07/24/18at 12:15; Admin Dose 400 MG; Start 07/19/18 at 13:00; Stop 08/16/18 at 12:59 Potassium Chloride 40 meq/ Sodium Chloride 1,000 ml @ 125 mls/hr Q8H IV Last administered on 07/24/18at 00:03; Admin Dose 125 MLS/HR; Start 07/20/18 at 12:30 Rifaximin (Xifaxan) 550 mg BID PO Last administered on 07/24/18 08:42; Admin Dose 550 MG; Start 07/20/18 at 21:00 Lactulose (Enulose) 20 gm DAILY PO Last administered on 07/24/18 08:40; Admin Dose 20 GM; Start 07/22/18 at 09:00 Spironolactone (Aldactone) 50 mg DAILY PO Last administered on 07/24/18 08:40; Admin Dose 50 MG; Start 07/22/18 at 13:00 Furosemide (Lasix) 20 mg DAILY PO Last administered on 07/24/18 08:41; Admin Dose 20 MG; Start 07/22/18 at 13:00 Morphine Sulfate (morphine) 6 mg Q4H PRN PO SEVERE PAIN LEVEL 7-10 Last administered on 07/24/18 13:15; Admin Dose 6 MG; Start 07/23/18 at 18:30 MELY CONNER MD Jul 24, 2018 14:22
--- NOTE | 2018-07-24 14:44 | PN ---
Date/Time of Note Date/Time of Note DATE: 07/24/18 TIME: 14:34 Assessment/Plan VTE Prophylaxis Risk score (from [facility])>0 risk: 3 SCD applied (from [facility]): Yes Pharmacological prophylaxis: other (scds) Lines/Catheters [facility] Peripheral IV Assessment/Plan Hospital Course Assessment: Alcoholic hepatitis- (Discriminant function is 44.2) -Coagulopathy -Thrombocytopenia- improving EGD 07/23/18 Portal hypertensive gastropathy Non-bleeding EV grade 0-1, too small to band Direct Hyperbilirubinemia- likely 2/2 to liver disease - Imaging shows no intra or extrahepatic biliary dilatation is seen. The common bile duct measures 5.8 mm Hepatic encephalopathy- resolved Diverticulitis- on Zosyn Alcohol abuse Plan: Recommend propranolol 10 mg po BID 2gm Na diet- monitor daily weight and I&O's MRCP-reviewed- no evidence of CBF obstruction Continue Zosyn for diverticulitis Pt will need follow up with hepatology post discharge Monitor labs, Transfuse for hemoglobin less than 7.5 Patient seen in collaboration with /[place] Subjective: Course reviewed with nursing staff Patient interviewed and examined All labs, imaging and other results reviewed Pt weak, and lethargic, however this may be d/t morphine. Discussed results of EGD and plan. Discussed need to quit drinking pt verbalized understanding. He feels BLE less swollen still with some pain but a little better PHYSICAL EXAMINATION: GENERAL: A&o x3, in no acute distress SKIN: Profound jaundice, no evidence of bleeding diathesis CHEST: Inspection within normal limits. CARDIOVASCULAR: Heart: Regular rate and rhythm RESPIRATORY: Lungs clear to auscultation GASTROINTESTINAL AND LIVER: Abdomen: Soft, non tenderness, distended, no hernias, no masses, no organomegaly, ascites, no guarding, no rebound tenderness, normoactive bowel sounds. Rectal: Deferred. EXTREMITIES: No cyanosis, lower extremity edema. Result Diagram: 07/24/18 0436 07/24/18 0436 Results 24hrs Laboratory Tests Test 07/24/18 04:36 White Blood Count 6.2 Red Blood Count 3.20 L Hemoglobin 10.9 L Hematocrit 31.2 L Mean Corpuscular Volume 97.5 Mean Corpuscular Hemoglobin 34.1 H Mean Corpuscular Hemoglobin Concent 34.9 Red Cell Distribution Width 18.8 H Platelet Count 154 Mean Platelet Volume 11.0 H Immature Granulocytes % 1.300 H Neutrophils % 71.7 Lymphocytes % 11.7 L Monocytes % 12.0 H Eosinophils % 2.0 Basophils % 1.3 Nucleated Red Blood Cells % 0.0 Immature Granulocytes # 0.080 H Neutrophils # 4.4 Lymphocytes # 0.7 L Monocytes # 0.7 Eosinophils # 0.1 Basophils # 0.1 Nucleated Red Blood Cells # 0.0 Sodium Level 133 L Potassium Level 3.4 L Chloride Level 100 Carbon Dioxide Level 26 Anion Gap 7 Blood Urea Nitrogen 7 Creatinine 0.69 Est Glomerular Filtrat Rate mL/min > 60 Glucose Level 111 Calcium Level 8.3 L Total Bilirubin 23.7 H Direct Bilirubin 19.40 *H Indirect Bilirubin 4.3 H Aspartate Amino Transf (AST/SGOT) 174 H Alanine Aminotransferase (ALT/SGPT) 56 Alkaline Phosphatase 171 H Total Protein 6.2 Albumin 2.5 L Globulin 3.70 H Albumin/Globulin Ratio 0.67 Exam/Review of Systems Exam Vitals Vital Signs Date Temp Pulse Resp B/P (MAP) Pulse Ox O2 O2 Flow FiO2 Time Delivery Rate 07/24/18 98.7 104 18 122/69 96 Room Air 14:22 (86) 07/23/18 8.0 18:01 Intake and Output 07/23/18 07/23/18 07/24/18 1515:00 23:00 07:00 IntakeIntake Total 800 ml 311.2 ml 2236.2 ml OutputOutput Total 700 ml BalanceBalance 800 ml -388.8 ml 2236.2 ml Results Results 24hrs Laboratory Tests Test 07/24/18 04:36 White Blood Count 6.2 Red Blood Count 3.20 L Hemoglobin 10.9 L Hematocrit 31.2 L Mean Corpuscular Volume 97.5 Mean Corpuscular Hemoglobin 34.1 H Mean Corpuscular Hemoglobin Concent 34.9 Red Cell Distribution Width 18.8 H Platelet Count 154 Mean Platelet Volume 11.0 H Immature Granulocytes % 1.300 H Neutrophils % 71.7 Lymphocytes % 11.7 L Monocytes % 12.0 H Eosinophils % 2.0 Basophils % 1.3 Nucleated Red Blood Cells % 0.0 Immature Granulocytes # 0.080 H Neutrophils # 4.4 Lymphocytes # 0.7 L Monocytes # 0.7 Eosinophils # 0.1 Basophils # 0.1 Nucleated Red Blood Cells # 0.0 Sodium Level 133 L Potassium Level 3.4 L Chloride Level 100 Carbon Dioxide Level 26 Anion Gap 7 Blood Urea Nitrogen 7 Creatinine 0.69 Est Glomerular Filtrat Rate mL/min > 60 Glucose Level 111 Calcium Level 8.3 L Total Bilirubin 23.7 H Direct Bilirubin 19.40 *H Indirect Bilirubin 4.3 H Aspartate Amino Transf (AST/SGOT) 174 H Alanine Aminotransferase (ALT/SGPT) 56 Alkaline Phosphatase 171 H Total Protein 6.2 Albumin 2.5 L Globulin 3.70 H Albumin/Globulin Ratio 0.67 Medications Medication Current Medications IV Flush (NS 3 ml) 3 ml PER PROTOCOL IV ; Start 07/18/18 at 22:30 Lorazepam (Ativan) 0.5 mg Q6H PRN IV .ANXIETY Last administered on 07/21/18at 17:50; Admin Dose 0.5 MG; Start 07/18/18 at 22:30 Acetaminophen (Tylenol Tab) 650 mg Q6H PRN PO .PAIN 1-3 OR TEMP Last administered on 07/20/18at 20:14; Admin Dose 650 MG; Start 07/18/18 at 22:30 Piperacillin Sod/ Tazobactam Sod 100 ml @ 200 mls/hr Q6 IVPB Last administered on 07/24/18at 12:13; Admin Dose 200 MLS/HR; Start 07/19/18 at 06:00 Pantoprazole (Protonix Tab) 40 mg DAILY@06 PO Last administered on 07/24/18at 05:19; Admin Dose 40 MG; Start 07/19/18 at 06:00 Multivitamins 10 ml/Thiamine HCl 100 mg/Folic Acid 1 mg/Sodium Chloride 1,011.2 ml @ 125 mls/ hr DAILY@09 IVPB Last administered on 07/24/18at 08:40; Admin Dose 125 MLS/HR; Start 07/19/18 at 09:00 Chlordiazepoxide (Librium) 50 mg TID PO Last administered on 07/24/18at 12:15; Admin Dose 50 MG; Start 07/19/18 at 09:00 Pentoxifylline (Trental) 400 mg TID PO Last administered on 07/24/18at 12:15; Admin Dose 400 MG; Start 07/19/18 at 13:00; Stop 08/16/18 at 12:59 Potassium Chloride 40 meq/ Sodium Chloride 1,000 ml @ 125 mls/hr Q8H IV Last administered on 07/24/18 00:03; Admin Dose 125 MLS/HR; Start 07/20/18 at 12:30 Rifaximin (Xifaxan) 550 mg BID PO Last administered on 07/24/18 08:42; Admin Dose 550 MG; Start 07/20/18 at 21:00 Lactulose (Enulose) 20 gm DAILY PO Last administered on 07/24/18 08:40; Admin Dose 20 GM; Start 07/22/18 at 09:00 Spironolactone (Aldactone) 50 mg DAILY PO Last administered on 07/24/18 08:40; Admin Dose 50 MG; Start 07/22/18 at 13:00 Furosemide (Lasix) 20 mg DAILY PO Last administered on 07/24/18 08:41; Admin Dose 20 MG; Start 07/22/18 at 13:00 Morphine Sulfate (morphine) 6 mg Q4H PRN PO SEVERE PAIN LEVEL 7-10 Last administered on 07/24/18 13:15; Admin Dose 6 MG; Start 07/23/18 at 18:30 Propranolol HCl (Inderal) 10 mg TID PO ; Start 07/24/18 at 21:00 TAYLOR PLEITEZ Jul 24, 2018 14:44
[2018-07-24 19:50] VITALS: BP 136/69; PULSE 100; RESP 20
[2018-07-24] MEDS: PROPRANOLOL 10 MG TAB PO SCH (20:23)
[2018-07-25] MEDS: PIPER-TAZO 3.375 GM IV (PMX) 100 ML IVPB SCH ×4 (00:23→17:36)
[2018-07-25 01:39] VITALS: BP 107/60; PULSE 70; RESP 20
[2018-07-25] MEDS: morphine LIQ (10 MG/5 ML) CUP PO PRN (03:48)
[2018-07-25] MEDS: POTASSIUM CHLORIDE 40 MEQ in SOD CHLORIDE 0.9% 1,000 ML IV SCH ×2 (04:30→06:46)
[2018-07-25] MEDS: PANTOPRAZOLE (EC) 40 MG TAB PO SCH (05:25)
[2018-07-25 08:00] VITALS: BP 104/52; PULSE 68; RESP 18
[2018-07-25] MEDS: PENTOXIFYLLINE (SR) 400 MG TAB PO SCH ×3 (08:59→20:31)
[2018-07-25] MEDS: PROPRANOLOL 10 MG TAB PO SCH ×3 (09:00→20:31)
[2018-07-25] MEDS: RIFAXIMIN 550 MG TAB PO SCH ×2 (09:00→20:31)
[2018-07-25] MEDS: CHLORDIAZEPOXIDE 25 MG CAP PO SCH ×3 (09:00→20:34)
[2018-07-25] MEDS: LACTULOSE 30ML CUP PO SCH ×3 (09:01→22:19)
[2018-07-25] MEDS: FUROSEMIDE 20 MG TAB PO SCH (09:01)
[2018-07-25] MEDS: SPIRONOLACTONE 50 MG TAB PO SCH (09:06)
--- NOTE | 2018-07-25 13:04 | PN ---
Date/Time of Note Date/Time of Note DATE: 07/25/18 TIME: 13:02 Assessment/Plan VTE Pro[place]axis [place] [facility] [place]: 2 [place]CD [place] [facility] [place] Yes Pharmacological prophylaxis: other Pharm contraindication: blood coag disorder Lines/Catheters [facility] ([facility] Peripheral IV Assessment/Plan Assessment/Plan 1. Alcoholism with alcoholic liver disease, on banana bag, no withdrawal symptoms 2. Hepatic encephalopathy- resolved, on lactulose and rifaximin 3. Jaundice from alcoholic liver disease 4. Coagulopathy due to liver disease 5. Normocytic anemia, chronic, stable H/H 6. Thrombocytopenia- improved 7. Diverticulitis- on Zosyn 8. ARU evaluation Result Diagram: 07/25/18 0549 07/25/18 0549 Results 24hrs Laboratory Tests Test 07/25/18 05:49 White Blood Count 8.1 # Red Blood Count 3.16 L Hemoglobin 10.7 L Hematocrit 30.8 L Mean Corpuscular Volume 97.5 Mean Corpuscular Hemoglobin 33.9 H Mean Corpuscular Hemoglobin Concent 34.7 Red Cell Distribution Width 19.0 H Platelet Count 164 Mean Platelet Volume 10.7 H Immature Granulocytes % 1.500 H Neutrophils % 75.6 Lymphocytes % 9.1 L Monocytes % 11.0 Eosinophils % 1.7 Basophils % 1.1 Nucleated Red Blood Cells % 0.0 Immature Granulocytes # 0.120 H Neutrophils # 6.1 Lymphocytes # 0.7 L Monocytes # 0.9 Eosinophils # 0.1 Basophils # 0.1 Nucleated Red Blood Cells # 0.0 Sodium Level 133 L Potassium Level 3.8 Chloride Level 102 Carbon Dioxide Level 21 Anion Gap 10 Blood Urea Nitrogen 6 L Creatinine 0.68 Est Glomerular Filtrat Rate mL/min > 60 Glucose Level 100 Calcium Level 8.0 L Total Bilirubin 22.1 H Direct Bilirubin 17.90 *H Indirect Bilirubin 4.2 H Aspartate Amino Transf (AST/SGOT) 161 H Alanine Aminotransferase (ALT/SGPT) 61 Alkaline Phosphatase 165 H Total Protein 6.2 Albumin 2.4 L Globulin 3.80 H Albumin/Globulin Ratio 0.63 Subjective 24 Hr Interval Summary Free Text/Dictation alert and oriented, weak Exam/Review of Systems Exam Vitals Vital Signs Date Temp Pulse Resp B/P (MAP) Pulse Ox O2 O2 Flow FiO2 Time Delivery Rate 07/25/18 98.0 68 18 104/52 98 Room Air 08:00 (69) 07/23/18 8.0 18:01 Intake and Output 07/24/18 07/24/18 07/25/18 1515:00 23:00 07:00 IntakeIntake Total 912.5 ml 1173.7 ml 1200 ml BalanceBalance 912.5 ml 1173.7 ml 1200 ml Constitutional: alert, oriented, well developed Head: normocephalic, atraumatic Eyes: nl conjunctiva, EOMI, nl lids, PERRL ENMT: nl external ears & nose, nl lips & teeth, nl nasal mucosa & septum Neck: supple, non-tender Respiratory: clear to auscultation, normal air movement; No congested cough, No crackles/rales, No diminished breath sounds, No intercostal retraction, No labored breathing, No respirations, No tactile fremitus, No wheezing, No other Cardiovascular: regular rate and rhythm, nl pulses; No bruits, No diastolic murmur, No edema, No gallop, No irregular rhythm, No jugular venous distention (JVD), No murmurs/extra sounds, No rub, No systolic murmur, No S3, No S4, No other Gastrointestinal: soft, nl liver, spleen, non-tender Extremities: edema 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-XII intact, nl mental status, nl speech, nl strength Results Results 24hrs Laboratory Tests Test 07/25/18 05:49 White Blood Count 8.1 # Red Blood Count 3.16 L Hemoglobin 10.7 L Hematocrit 30.8 L Mean Corpuscular Volume 97.5 Mean Corpuscular Hemoglobin 33.9 H Mean Corpuscular Hemoglobin Concent 34.7 Red Cell Distribution Width 19.0 H Platelet Count 164 Mean Platelet Volume 10.7 H Immature Granulocytes % 1.500 H Neutrophils % 75.6 Lymphocytes % 9.1 L Monocytes % 11.0 Eosinophils % 1.7 Basophils % 1.1 Nucleated Red Blood Cells % 0.0 Immature Granulocytes # 0.120 H Neutrophils # 6.1 Lymphocytes # 0.7 L Monocytes # 0.9 Eosinophils # 0.1 Basophils # 0.1 Nucleated Red Blood Cells # 0.0 Sodium Level 133 L Potassium Level 3.8 Chloride Level 102 Carbon Dioxide Level 21 Anion Gap 10 Blood Urea Nitrogen 6 L Creatinine 0.68 Est Glomerular Filtrat Rate mL/min > 60 Glucose Level 100 Calcium Level 8.0 L Total Bilirubin 22.1 H Direct Bilirubin 17.90 *H Indirect Bilirubin 4.2 H Aspartate Amino Transf (AST/SGOT) 161 H Alanine Aminotransferase (ALT/SGPT) 61 Alkaline Phosphatase 165 H Total Protein 6.2 Albumin 2.4 L Globulin 3.80 H Albumin/Globulin Ratio 0.63 Medications Medication Current Medications IV Flush (NS 3 ml) 3 ml PER PROTOCOL IV ; Start 07/18/18 at 22:30 Lorazepam (Ativan) 0.5 mg Q6H PRN IV .ANXIETY Last administered on 07/21/18at 17:50; Admin Dose 0.5 MG; Start 07/18/18 at 22:30 Acetaminophen (Tylenol Tab) 650 mg Q6H PRN PO .PAIN 1-3 OR TEMP Last administered on 07/20/18at 20:14; Admin Dose 650 MG; Start 07/18/18 at 22:30 Piperacillin Sod/ Tazobactam Sod 100 ml @ 200 mls/hr Q6 IVPB Last administered on 07/25/18at 12:19; Admin Dose 200 MLS/HR; Start 07/19/18 at 06:00 Pantoprazole (Protonix Tab) 40 mg DAILY@06 PO Last administered on 07/25/18at 05:25; Admin Dose 40 MG; Start 07/19/18 at 06:00 Multivitamins 10 ml/Thiamine HCl 100 mg/Folic Acid 1 mg/Sodium Chloride 1,011.2 ml @ 125 mls/ hr DAILY@09 IVPB Last administered on 07/24/18at 08:40; Admin Dose 125 MLS/HR; Start 07/19/18 at 09:00 Chlordiazepoxide (Librium) 50 mg TID PO Last administered on 07/25/18 12:19; Admin Dose 50 MG; Start 07/19/18 at 09:00 Pentoxifylline (Trental) 400 mg TID PO Last administered on 07/25/18at 12:20; Admin Dose 400 MG; Start 07/19/18 at 13:00; Stop 08/16/18 at 12:59 Potassium Chloride 40 meq/ Sodium Chloride 1,000 ml @ 125 mls/hr Q8H IV Last administered on 07/25/18at 06:46; Admin Dose 125 MLS/HR; Start 07/20/18 at 12:30 Rifaximin (Xifaxan) 550 mg BID PO Last administered on 07/25/18at 09:00; Admin Dose 550 MG; Start 07/20/18 at 21:00 Lactulose (Enulose) 20 gm DAILY PO Last administered on 07/25/18 09:01; Admin Dose 20 GM; Start 07/22/18 at 09:00 Spironolactone (Aldactone) 50 mg DAILY PO Last administered on 07/25/18 09:06; Admin Dose 50 MG; Start 07/22/18 at 13:00 Furosemide (Lasix) 20 mg DAILY PO Last administered on 07/25/18 09:01; Admin Dose 20 MG; Start 07/22/18 at 13:00 Morphine Sulfate (morphine) 6 mg Q4H PRN PO SEVERE PAIN LEVEL 7-10 Last administered on 07/25/18 03:48; Admin Dose 6 MG; Start 07/23/18 at 18:30 Propranolol HCl (Inderal) 10 mg TID PO Last administered on 07/25/18at 12:21; Admin Dose 10 MG; Start 07/24/18 at 21:00 MELY CONNER MD Jul 25, 2018 13:04
[2018-07-25 14:00] VITALS: BP 107/66; PULSE 65; RESP 18
--- NOTE | 2018-07-25 15:55 | PN ---
Date/Time of Note Date/Time of Note DATE: 07/25/18 TIME: 15:48 Assessment/Plan VTE Prophylaxis Risk score (from Ns)>0 risk: 2 SCD applied (from Ns): Yes Pharmacological prophylaxis: other (scds) Lines/Catheters IV C[facility]ter Type (from [facility]): Peripheral IV Assessment/Plan Hospital Course Assessment: Alcoholic hepatitis- (Discriminant function is 44.2) -Coagulopathy -Thrombocytopenia- improving EGD 07/23/18 Portal hypertensive gastropathy Non-bleeding EV grade 0-1, too small to band Direct Hyperbilirubinemia- likely 2/2 to liver disease - Imaging shows no intra or extrahepatic biliary dilatation is seen. The common bile duct measures 5.8 mm Hepatic encephalopathy- resolved Diverticulitis- on Zosyn Alcohol abuse Plan: ARU- evaluation pending Increase Aldactone to 100mg- lactulose- tritiate to 3 bms per day (only 1 bm in the past 2 days will increase to BID) 2gm Na diet- monitor daily weight and I&O's Continue Zosyn for diverticulitis Pt will need follow up with hepatology post discharge Patient seen in collaboration with /Concepción Subjective: Course reviewed with nursing staff Patient interviewed and examined All labs, imaging and other results reviewed Pt weak, and lethargic, no over night events Maintain close observation. No c/o n/v or abd pain PHYSICAL EXAMINATION: GENERAL: A&o x3, in no acute distress SKIN: Profound jaundice, no evidence of bleeding diathesis CHEST: Inspection within normal limits. CARDIOVASCULAR: Heart: Regular rate and rhythm RESPIRATORY: Lungs clear to auscultation GASTROINTESTINAL AND LIVER: Abdomen: Soft, non tenderness, distended, no hernias, no masses, no organomegaly, ascites, no guarding, no rebound tenderness, normoactive bowel sounds. Rectal: Deferred. EXTREMITIES: No cyanosis, lower extremity edema. Result Diagram: 07/25/18 0549 07/25/18 0549 Results 24hrs Laboratory Tests Test 07/25/18 05:49 White Blood Count 8.1 # Red Blood Count 3.16 L Hemoglobin 10.7 L Hematocrit 30.8 L Mean Corpuscular Volume 97.5 Mean Corpuscular Hemoglobin 33.9 H Mean Corpuscular Hemoglobin Concent 34.7 Red Cell Distribution Width 19.0 H Platelet Count 164 Mean Platelet Volume 10.7 H Immature Granulocytes % 1.500 H Neutrophils % 75.6 Lymphocytes % 9.1 L Monocytes % 11.0 Eosinophils % 1.7 Basophils % 1.1 Nucleated Red Blood Cells % 0.0 Immature Granulocytes # 0.120 H Neutrophils # 6.1 Lymphocytes # 0.7 L Monocytes # 0.9 Eosinophils # 0.1 Basophils # 0.1 Nucleated Red Blood Cells # 0.0 Sodium Level 133 L Potassium Level 3.8 Chloride Level 102 Carbon Dioxide Level 21 Anion Gap 10 Blood Urea Nitrogen 6 L Creatinine 0.68 Est Glomerular Filtrat Rate mL/min > 60 Glucose Level 100 Calcium Level 8.0 L Total Bilirubin 22.1 H Direct Bilirubin 17.90 *H Indirect Bilirubin 4.2 H Aspartate Amino Transf (AST/SGOT) 161 H Alanine Aminotransferase (ALT/SGPT) 61 Alkaline Phosphatase 165 H Total Protein 6.2 Albumin 2.4 L Globulin 3.80 H Albumin/Globulin Ratio 0.63 Exam/Review of Systems Exam Vitals Vital Signs Date Temp Pulse Resp B/P (MAP) Pulse Ox O2 O2 Flow FiO2 Time Delivery Rate 07/25/18 98.0 65 18 107/66 98 Room Air 14:00 (80) 07/23/18 8.0 18:01 Intake and Output 07/24/18 07/24/18 07/25/18 1515:00 23:00 07:00 IntakeIntake Total 912.5 ml 1173.7 ml 1200 ml BalanceBalance 912.5 ml 1173.7 ml 1200 ml Results Results 24hrs Laboratory Tests Test 07/25/18 05:49 White Blood Count 8.1 # Red Blood Count 3.16 L Hemoglobin 10.7 L Hematocrit 30.8 L Mean Corpuscular Volume 97.5 Mean Corpuscular Hemoglobin 33.9 H Mean Corpuscular Hemoglobin Concent 34.7 Red Cell Distribution Width 19.0 H Platelet Count 164 Mean Platelet Volume 10.7 H Immature Granulocytes % 1.500 H Neutrophils % 75.6 Lymphocytes % 9.1 L Monocytes % 11.0 Eosinophils % 1.7 Basophils % 1.1 Nucleated Red Blood Cells % 0.0 Immature Granulocytes # 0.120 H Neutrophils # 6.1 Lymphocytes # 0.7 L Monocytes # 0.9 Eosinophils # 0.1 Basophils # 0.1 Nucleated Red Blood Cells # 0.0 Sodium Level 133 L Potassium Level 3.8 Chloride Level 102 Carbon Dioxide Level 21 Anion Gap 10 Blood Urea Nitrogen 6 L Creatinine 0.68 Est Glomerular Filtrat Rate mL/min > 60 Glucose Level 100 Calcium Level 8.0 L Total Bilirubin 22.1 H Direct Bilirubin 17.90 *H Indirect Bilirubin 4.2 H Aspartate Amino Transf (AST/SGOT) 161 H Alanine Aminotransferase (ALT/SGPT) 61 Alkaline Phosphatase 165 H Total Protein 6.2 Albumin 2.4 L Globulin 3.80 H Albumin/Globulin Ratio 0.63 Medications Medication Current Medications IV Flush (NS 3 ml) 3 ml PER PROTOCOL IV ; Start 07/18/18 at 22:30 Lorazepam (Ativan) 0.5 mg Q6H PRN IV .ANXIETY Last administered on 07/21/18at 17:50; Admin Dose 0.5 MG; Start 07/18/18 at 22:30 Acetaminophen (Tylenol Tab) 650 mg Q6H PRN PO .PAIN 1-3 OR TEMP Last administered on 07/20/18at 20:14; Admin Dose 650 MG; Start 07/18/18 at 22:30 Piperacillin Sod/ Tazobactam Sod 100 ml @ 200 mls/hr Q6 IVPB Last administered on 07/25/18at 12:19; Admin Dose 200 MLS/HR; Start 07/19/18 at 06:00 Pantoprazole (Protonix Tab) 40 mg DAILY@06 PO Last administered on 07/25/18at 05:25; Admin Dose 40 MG; Start 07/19/18 at 06:00 Chlordiazepoxide (Librium) 50 mg TID PO Last administered on 07/25/18at 12:19; Admin Dose 50 MG; Start 07/19/18 at 09:00 Pentoxifylline (Trental) 400 mg TID PO Last administered on 07/25/18at 12:20; Admin Dose 400 MG; Start 07/19/18 at 13:00; Stop 08/16/18 at 12:59 Rifaximin (Xifaxan) 550 mg BID PO Last administered on 07/25/18at 09:00; Admin Dose 550 MG; Start 07/20/18 at 21:00 Lactulose (Enulose) 20 gm DAILY PO Last administered on 07/25/18at 09:01; Admin Dose 20 GM; Start 07/22/18 at 09:00 Spironolactone (Aldactone) 50 mg DAILY PO Last administered on 07/25/18 09:06; Admin Dose 50 MG; Start 07/22/18 at 13:00 Furosemide (Lasix) 20 mg DAILY PO Last administered on 07/25/18 09:01; Admin Dose 20 MG; Start 07/22/18 at 13:00 Morphine Sulfate (morphine) 6 mg Q4H PRN PO SEVERE PAIN LEVEL 7-10 Last administered on 07/25/18 03:48; Admin Dose 6 MG; Start 07/23/18 at 18:30 Propranolol HCl (Inderal) 10 mg TID PO Last administered on 07/25/18 12:21; Admin Dose 10 MG; Start 07/24/18 at 21:00 TAYLOR PLEITEZ Jul 25, 2018 15:55
[2018-07-25 20:21] VITALS: BP 99/63; PULSE 65; RESP 18
[2018-07-26] MEDS: PIPER-TAZO 3.375 GM IV (PMX) 100 ML IVPB SCH ×2 (00:20→06:12)
[2018-07-26 02:00] VITALS: BP 107/66; PULSE 71; RESP 18
[2018-07-26] MEDS: morphine LIQ (10 MG/5 ML) CUP PO PRN ×3 (02:37→22:51)
[2018-07-26] MEDS: PANTOPRAZOLE (EC) 40 MG TAB PO SCH (06:12)
[2018-07-26 08:00] VITALS: BP 99/62; PULSE 82
[2018-07-26] MEDS: LACTULOSE 30ML CUP PO SCH ×2 (08:19→20:23)
[2018-07-26] MEDS: FUROSEMIDE 20 MG TAB PO SCH (08:20)
[2018-07-26] MEDS: PENTOXIFYLLINE (SR) 400 MG TAB PO SCH ×3 (08:20→20:23)
[2018-07-26] MEDS: RIFAXIMIN 550 MG TAB PO SCH ×2 (08:20→20:23)
[2018-07-26] MEDS: CHLORDIAZEPOXIDE 25 MG CAP PO SCH (08:20)
[2018-07-26] MEDS: PROPRANOLOL 10 MG TAB PO SCH ×3 (08:21→20:37)
[2018-07-26] MEDS: SPIRONOLACTONE 50 MG TAB PO SCH (08:28)
--- NOTE | 2018-07-26 14:27 | PN ---
Date/Time of Note Date/Time of Note DATE: 07/26/18 TIME: 14:22 Assessment/Plan VTE Prophylaxis Risk score (from Nsg)>0 risk: 3 SCD applied (from Ns): Yes Pharmacological prophylaxis: heparin Lines/Catheters IV Catheter Type (from Nrsg): Peripheral IV Assessment/Plan Hospital Course 43 yo male with severe alcoholic hepatitis and cirrhosis - Continue supportive care - Pentoxifylline course, not sure why no steroids but both therapies with minimal benefit regardless Cirrhosis with varices - Propranolol Encephelopathy: - Has received massive amount of librium. Hold this an monitor mental status - HE might be present as well, continue lactulose and rifaxin Patient very tenuous. Survival entirely dependent on spontaneous liver recovery which seems unlikely Result Diagram: 07/25/18 0549 07/25/1849 Subjective 24 Hr Interval Summary Free Text/Dictation Patient very sedated Arousable and seems to have adequate mentation. Denies pain Exam/Review of Systems Exam Vitals Vital Signs Date Temp Pulse Resp B/P (MAP) Pulse Ox O2 O2 Flow FiO2 Time Delivery Rate 07/26/18 98.1 82 99/62 (74) 97 Room Air 08:00 07/26/18 18 02:00 07/23/18 8.0 18:01 Intake and Output 07/25/18 07/25/18 07/26/18 1515:00 23:00 07:00 IntakeIntake Total 2215 ml 980 ml 440 ml OutputOutput Total 400 ml BalanceBalance 2215 ml 980 ml 40 ml Exam Marked jaundice Lethargic Responds to voice and noxious stimlui x 4 RRR Breathing comfortably CTAB Abdomen obese, mildly distended Ext warm Medications Medication Current Medications IV Flush (NS 3 ml) 3 ml PER PROTOCOL IV ; Start 07/18/18 at 22:30 Lorazepam (Ativan) 0.5 mg Q6H PRN IV .ANXIETY Last administered on 07/21/18at 17:50; Admin Dose 0.5 MG; Start 07/18/18 at 22:30 Acetaminophen (Tylenol Tab) 650 mg Q6H PRN PO .PAIN 1-3 OR TEMP Last administered on 07/20/18at 20:14; Admin Dose 650 MG; Start 07/18/18 at 22:30 Pantoprazole (Protonix Tab) 40 mg DAILY@06 PO Last administered on 07/26/18 06:12; Admin Dose 40 MG; Start 07/19/18 at 06:00 Pentoxifylline (Trental) 400 mg TID PO Last administered on 07/26/18 12:27; Admin Dose 400 MG; Start 07/19/18 at 13:00; Stop 08/16/18 at 12:59 Rifaximin (Xifaxan) 550 mg BID PO Last administered on 07/26/18 08:20; Admin Dose 550 MG; Start 07/20/18 at 21:00 Furosemide (Lasix) 20 mg DAILY PO Last administered on 07/26/18 08:20; Admin Dose 20 MG; Start 07/22/18 at 13:00 Morphine Sulfate (morphine) 6 mg Q4H PRN PO SEVERE PAIN LEVEL 7-10 Last administered on 07/26/18 08:14; Admin Dose 6 MG; Start 07/23/18 at 18:30 Propranolol HCl (Inderal) 10 mg TID PO Last administered on 07/26/18 08:21; Admin Dose 10 MG; Start 07/24/18 at 21:00 Spironolactone (Aldactone) 100 mg DAILY PO Last administered on 07/26/18 08:28; Admin Dose 100 MG; Start 07/26/18 at 09:00 Lactulose (Enulose) 20 gm BID PO Last administered on 07/26/18 08:19; Admin Dose 20 GM; Start 07/25/18 at 21:00 AURELIA PRINGLE MD Jul 26, 2018 14:27
--- NOTE | 2018-07-26 18:02 | PN ---
Date/Time of Note Date/Time of Note DATE: 07/26/18 TIME: 17:54 Assessment/Plan VTE Prophylaxis Risk score (from Ns)>0 risk: 3 SCD applied (from [facility] [place]): Yes Pharmacological prophylaxis: NA/contraindicated Pharm contraindication: liver dx Lines/Catheters IV Catheter Type (from [facility]): Peripheral IV Assessment/Plan Assessment/Plan Assessment: Alcoholic hepatitis- (Discriminant function is 44.2) -Coagulopathy -Thrombocytopenia- improving EGD 07/23/18 Portal hypertensive gastropathy Non-bleeding EV grade 0-1, too small to band Direct Hyperbilirubinemia- likely 2/2 to liver disease - Imaging shows no intra or extrahepatic biliary dilatation is seen. The com mon bile duct measures 5.8 mm Hepatic encephalopathy- resolved Diverticulitis- on Zosyn Alcohol abuse Plan: Aldactone to 100mg Continue lactulose- tritiate to 3 bms per day (only 1 bm in the past 2 days will increase to BID) Continue rifaximin 2gm Na diet- monitor daily weight and I&O's Continue Zosyn for diverticulitis Pt will need follow up with hepatology post discharge Patient seen in collaboration with /Con[place] Subjective: Course reviewed with nursing staff Patient interviewed and examined All labs, imaging and other results reviewed Patient is slightly confused and lethargic. Patient had 3-4 BMs today. Currently on lactulose and rifaximin. Bilirubin is trending down. Maintain close observation. PHYSICAL EXAMINATION: GENERAL: A&o x3, in no acute distress SKIN: Profound jaundice, no evidence of bleeding diathesis CHEST: Inspection within normal limits. CARDIOVASCULAR: Heart: Regular rate and rhythm RESPIRATORY: Lungs clear to auscultation GASTROINTESTINAL AND LIVER: Abdomen: Soft, non tenderness, distended, no hernias, no masses, no organomegaly, ascites, no guarding, no rebound tenderness, normoactive bowel sounds. Rectal: Deferred. EXTREMITIES: No cyanosis, lower extremity edema. Result Diagram: 07/25/1849 07/25/1849 CC: EVAN AQUINO MD ; Exam/Review of Systems Exam Vitals Vital Signs Date Temp Pulse Resp B/P (MAP) Pulse Ox O2 O2 Flow FiO2 Time Delivery Rate 07/26/18 98.1 82 99/62 (74) 97 Room Air 08:00 07/26/18 18 02:00 07/23/18 8.0 18:01 Intake and Output 07/25/18 07/25/18 07/26/18 1515:00 23:00 07:00 IntakeIntake Total 2215 ml 980 ml 440 ml OutputOutput Total 400 ml BalanceBalance 2215 ml 980 ml 40 ml Medications Medication Current Medications IV Flush (NS 3 ml) 3 ml PER PROTOCOL IV ; Start 07/18/18 at 22:30 Acetaminophen (Tylenol Tab) 650 mg Q6H PRN PO .PAIN 1-3 OR TEMP Last administered on 07/20/18 20:14; Admin Dose 650 MG; Start 07/18/18 at 22:30 Pantoprazole (Protonix Tab) 40 mg DAILY@06 PO Last administered on 07/26/18 06:12; Admin Dose 40 MG; Start 07/19/18 at 06:00 Pentoxifylline (Trental) 400 mg TID PO Last administered on 07/26/18 12:27; Admin Dose 400 MG; Start 07/19/18 at 13:00; Stop 08/16/18 at 12:59 Rifaximin (Xifaxan) 550 mg BID PO Last administered on 07/26/18 08:20; Admin Dose 550 MG; Start 07/20/18 at 21:00 Furosemide (Lasix) 20 mg DAILY PO Last administered on 07/26/18 08:20; Admin Dose 20 MG; Start 07/22/18 at 13:00 Morphine Sulfate (morphine) 6 mg Q4H PRN PO SEVERE PAIN LEVEL 7-10 Last administered on 07/26/18 08:14; Admin Dose 6 MG; Start 07/23/18 at 18:30 Propranolol HCl (Inderal) 10 mg TID PO Last administered on 07/26/18 08:21; Admin Dose 10 MG; Start 07/24/18 at 21:00 Spironolactone (Aldactone) 100 mg DAILY PO Last administered on 07/26/18 08:28; Admin Dose 100 MG; Start 07/26/18 at 09:00 Lactulose (Enulose) 20 gm BID PO Last administered on 07/26/18 08:19; Admin Dose 20 GM; Start 07/25/18 at 21:00 RANJEET BUSTAMANTE NP Jul 26, 2018 18:02
[2018-07-26 20:00] VITALS: BP 87/52; PULSE 63; RESP 16
[2018-07-26 20:35] VITALS: BP 90/52; PULSE 62
[2018-07-26 22:45] VITALS: BP 109/74; PULSE 65; RESP 16
[2018-07-27 02:00] VITALS: BP 97/55; PULSE 61; RESP 16
[2018-07-27] MEDS: PANTOPRAZOLE (EC) 40 MG TAB PO SCH (05:44)
[2018-07-27] MEDS: morphine LIQ (10 MG/5 ML) CUP PO PRN (05:44)
[2018-07-27] MEDS: PROPRANOLOL 10 MG TAB PO SCH ×3 (08:57→20:30)
[2018-07-27] MEDS: SPIRONOLACTONE 50 MG TAB PO SCH (08:58)
[2018-07-27] MEDS: FUROSEMIDE 20 MG TAB PO SCH (08:58)
[2018-07-27] MEDS: RIFAXIMIN 550 MG TAB PO SCH ×2 (08:58→20:29)
[2018-07-27] MEDS: PENTOXIFYLLINE (SR) 400 MG TAB PO SCH ×3 (08:58→20:29)
[2018-07-27] MEDS: LACTULOSE 30ML CUP PO SCH ×2 (08:58→20:32)
[2018-07-27] MEDS ORDERED: POTASSIUM CHLORIDE (SR) 20 MEQ TAB PO ONE (09:30)
--- NOTE | 2018-07-27 11:56 | PN ---
Date/Time of Note Date/Time of Note DATE: 07/27/18 TIME: 11:47 Assessment/Plan VTE [place] [facility] [place]: 4 [place] [facility] [place] SCD contraindicated: low risk/ambulating Pharmacological prophylaxis: NA/contraindicated Pharm contraindication: liver dx Lines/Catheters IV Catheter Type (from [facility]): [place] Assessment/Plan Assessment/Plan Assessment: Alcoholic hepatitis- (Discriminant function is 44.2) -Coagulopathy -Thrombocytopenia- improving EGD 07/23/18 Portal hypertensive gastropathy Non-bleeding EV grade 0-1, too small to band Direct Hyperbilirubinemia- likely 2/2 to liver disease - Imaging shows no intra or extrahepatic biliary dilatation is seen. The common bile duct measures 5.8 mm Hepatic encephalopathy- resolved Diverticulitis- on Zosyn Alcohol abuse Plan: Continue Pentoxifylline - patient was not a candidate for steroids d/t diverticulitis on the admission Continue Rifaximin and lactulose- tritiate to 3 bms per day (only 1 bm in the past 2 days will increase to BID) 2gm Na diet- monitor daily weight and I&O's Continue Zosyn for diverticulitis Pt will need follow up with hepatology post discharge Patient seen in collaboration with Dr. Beebe Subjective: Course reviewed with nursing staff Patient interviewed and examined All labs, imaging and other results reviewed Patient reports feeling better today. He had 1 loose BM today. Currently on lactulose and rifaximin. Bilirubin is trending down. Continue present regimen. Maintain close observation. PHYSICAL EXAMINATION: GENERAL: Awake and alert x3, anasarca, in no acute distress SKIN: Profound jaundice, no evidence of bleeding diathesis CHEST: Inspection within normal limits. CARDIOVASCULAR: Heart: Regular rate and rhythm RESPIRATORY: Lungs clear to auscultation GASTROINTESTINAL AND LIVER: Abdomen: Soft, non tenderness, distended, no hernias, no masses, no organomegaly, ascites, no guarding, no rebound tender ness, normoactive bowel sounds. Rectal: Deferred. EXTREMITIES: No cyanosis, lower extremity edema. Result Diagram: 07/27/18 0837 07/27/18 0837 Results 24hrs Laboratory Tests Test 07/27/18 08:37 07/27/18 08:38 White Blood Count 8.3 Red Blood Count 3.19 L Hemoglobin 11.2 L Hematocrit 30.9 L Mean Corpuscular Volume 96.9 Mean Corpuscular Hemoglobin 35.1 H Mean Corpuscular Hemoglobin Concent 36.2 Red Cell Distribution Width 18.6 H Platelet Count 151 Mean Platelet Volume 10.7 H Immature Granulocytes % 1.000 H Neutrophils % 78.9 H Lymphocytes % 9.4 L Monocytes % 8.6 Eosinophils % 1.1 Basophils % 1.0 Nucleated Red Blood Cells % 0.0 Immature Granulocytes # 0.080 H Neutrophils # 6.5 Lymphocytes # 0.8 Monocytes # 0.7 Eosinophils # 0.1 Basophils # 0.1 Nucleated Red Blood Cells # 0.0 Sodium Level 134 L Potassium Level 3.3 L Chloride Level 102 Carbon Dioxide Level 24 Anion Gap 8 Blood Urea Nitrogen 6 L Creatinine 0.91 Est Glomerular Filtrat Rate mL/min > 60 Glucose Level 94 Calcium Level 8.5 Total Bilirubin 20.7 H Direct Bilirubin 16.90 *H Indirect Bilirubin 3.8 H Aspartate Amino Transf (AST/SGOT) 172 H Alanine Aminotransferase (ALT/SGPT) 63 Alkaline Phosphatase 163 H Total Protein 5.9 L Albumin 2.2 L Globulin 3.70 H Albumin/Globulin Ratio 0.59 Prothrombin Time 19.1 H Prothrombin Time Ratio 1.5 INR International Normalized Ratio 1.60 CC: EVAN BEEBE MD ; Exam/Review of Systems Exam Vitals Vital Signs Date Temp Pulse Resp B/P (MAP) Pulse Ox O2 O2 Flow FiO2 Time Delivery Rate 07/27/18 98.5 61 16 97/55 (69) 97 Room Air 02:00 07/23/18 8.0 18:01 Intake and Output 07/26/18 07/26/18 07/27/18 1515:00 23:00 07:00 IntakeIntake Total 760 ml 240 ml 200 ml BalanceBalance 760 ml 240 ml 200 ml Results Results 24hrs Laboratory Tests Test 07/27/18 08:37 07/27/18 08:38 White Blood Count 8.3 Red Blood Count 3.19 L Hemoglobin 11.2 L Hematocrit 30.9 L Mean Corpuscular Volume 96.9 Mean Corpuscular Hemoglobin 35.1 H Mean Corpuscular Hemoglobin Concent 36.2 Red Cell Distribution Width 18.6 H Platelet Count 151 Mean Platelet Volume 10.7 H Immature Granulocytes % 1.000 H Neutrophils % 78.9 H Lymphocytes % 9.4 L Monocytes % 8.6 Eosinophils % 1.1 Basophils % 1.0 Nucleated Red Blood Cells % 0.0 Immature Granulocytes # 0.080 H Neutrophils # 6.5 Lymphocytes # 0.8 Monocytes # 0.7 Eosinophils # 0.1 Basophils # 0.1 Nucleated Red Blood Cells # 0.0 Sodium Level 134 L Potassium Level 3.3 L Chloride Level 102 Carbon Dioxide Level 24 Anion Gap 8 Blood Urea Nitrogen 6 L Creatinine 0.91 Est Glomerular Filtrat Rate mL/min > 60 Glucose Level 94 Calcium Level 8.5 Total Bilirubin 20.7 H Direct Bilirubin 16.90 *H Indirect Bilirubin 3.8 H Aspartate Amino Transf (AST/SGOT) 172 H Alanine Aminotransferase (ALT/SGPT) 63 Alkaline Phosphatase 163 H Total Protein 5.9 L Albumin 2.2 L Globulin 3.70 H Albumin/Globulin Ratio 0.59 Prothrombin Time 19.1 H Prothrombin Time Ratio 1.5 INR International Normalized Ratio 1.60 Medications Medication Current Medications IV Flush (NS 3 ml) 3 ml PER PROTOCOL IV Last administered on 07/26/18 20:25; Admin Dose 3 ML; Start 07/18/18 at 22:30 Acetaminophen (Tylenol Tab) 650 mg Q6H PRN PO .PAIN 1-3 OR TEMP Last administered on 07/20/18 20:14; Admin Dose 650 MG; Start 07/18/18 at 22:30 Pantoprazole (Protonix Tab) 40 mg DAILY@06 PO Last administered on 07/27/18 05:44; Admin Dose 40 MG; Start 07/19/18 at 06:00 Pentoxifylline (Trental) 400 mg TID PO Last administered on 07/27/18 08:58; Admin Dose 400 MG; Start 07/19/18 at 13:00; Stop 08/16/18 at 12:59 Rifaximin (Xifaxan) 550 mg BID PO Last administered on 07/27/18 08:58; Admin Dose 550 MG; Start 07/20/18 at 21:00 Furosemide (Lasix) 20 mg DAILY PO Last administered on 07/27/18 08:58; Admin Dose 20 MG; Start 07/22/18 at 13:00 Morphine Sulfate (morphine) 6 mg Q4H PRN PO SEVERE PAIN LEVEL 7-10 Last administered on 2/23/19at 05:44; Admin Dose 6 MG; Start 07/23/18 at 18:30 Propranolol HCl (Inderal) 10 mg TID PO Last administered on 07/26/18at 08:21; Admin Dose 10 MG; Start 07/24/18 at 21:00 Spironolactone (Aldactone) 100 mg DAILY PO Last administered on 07/27/18at 08 :58; Admin Dose 100 MG; Start 07/26/18 at 09:00 Lactulose (Enulose) 20 gm BID PO Last administered on 07/27/18at 08:58; Admin Dose 20 GM; Start 07/25/18 at 21:00 RANJEET BUSTAMANTE [employer] Jul 27, 2018 11:56
[2018-07-27 15:04] VITALS: BP 105/60; PULSE 71; RESP 17
--- NOTE | 2018-07-27 17:44 | PN ---
Date/Time of Note Date/Time of Note DATE: 07/27/18 TIME: 17:40 Assessment/Plan VTE Prophylaxis Risk score (from Ns)>0 risk: 4 SCD applied (from Ns): Yes Pharmacological prophylaxis: heparin Lines/Catheters IV Catheter Type (from [facility]): Saline Lock Assessment/Plan Hospital Course 43 yo male with severe alcoholic hepatitis and cirrhosis - Continue supportive care - Pentoxifylline course, not sure why no steroids but minimal benefit regardless - Continue diuretics, uptitrate lasix to 40 mg and continue juancarlos 100 - Paracentesis as seems a bit resistant to diuretics Cirrhosis with varices - Propranolol Encephelopathy: - Has received massive amount of librium. Hold this an monitor mental status - HE might be present as well, continue lactulose and rifaxin Patient very tenuous. Survival entirely dependent on spontaneous liver recovery which seems unlikely Result Diagram: 07/27/18 0837 07/27/18 0837 Results 24hrs Laboratory Tests Test 07/27/18 08:37 07/27/18 08:38 White Blood Count 8.3 Red Blood Count 3.19 L Hemoglobin 11.2 L Hematocrit 30.9 L Mean Corpuscular Volume 96.9 Mean Corpuscular Hemoglobin 35.1 H Mean Corpuscular Hemoglobin Concent 36.2 Red Cell Distribution Width 18.6 H Platelet Count 151 Mean Platelet Volume 10.7 H Immature Granulocytes % 1.000 H Neutrophils % 78.9 H Lymphocytes % 9.4 L Monocytes % 8.6 Eosinophils % 1.1 Basophils % 1.0 Nucleated Red Blood Cells % 0.0 Immature Granulocytes # 0.080 H Neutrophils # 6.5 Lymphocytes # 0.8 Monocytes # 0.7 Eosinophils # 0.1 Basophils # 0.1 Nucleated Red Blood Cells # 0.0 Sodium Level 134 L Potassium Level 3.3 L Chloride Level 102 Carbon Dioxide Level 24 Anion Gap 8 Blood Urea Nitrogen 6 L Creatinine 0.91 Est Glomerular Filtrat Rate mL/min > 60 Glucose Level 94 Calcium Level 8.5 Total Bilirubin 20.7 H Direct Bilirubin 16.90 *H Indirect Bilirubin 3.8 H Aspartate Amino Transf (AST/SGOT) 172 H Alanine Aminotransferase (ALT/SGPT) 63 Alkaline Phosphatase 163 H Total Protein 5.9 L Albumin 2.2 L Globulin 3.70 H Albumin/Globulin Ratio 0.59 Prothrombin Time 19.1 H Prothrombin Time Ratio 1.5 INR International Normalized Ratio 1.60 Subjective 24 Hr Interval Summary Free Text/Dictation Encephelopathy is much better off of librium Still a bit lethargic but conversant Wants to be discharged to "detox center" Exam/Review of Systems Exam Vitals Vital Signs Date Temp Pulse Resp B/P (MAP) Pulse Ox O2 O2 Flow FiO2 Time Delivery Rate 07/27/18 96.9 71 17 105/60 97 15:04 (75) 07/27/18 Room Air 02:00 07/23/18 8.0 18:01 Intake and Output 07/26/18 07/26/18 07/27/18 1515:00 23:00 07:00 IntakeIntake Total 760 ml 240 ml 200 ml BalanceBalance 760 ml 240 ml 200 ml Exam Alert, oriented Groggy No distress Jaundiced RRR CTAB Abdomen distended Legs with edema No asterixis Results Results 24hrs Laboratory Tests Test 07/27/18 08:37 07/27/18 08:38 White Blood Count 8.3 Red Blood Count 3.19 L Hemoglobin 11.2 L Hematocrit 30.9 L Mean Corpuscular Volume 96.9 Mean Corpuscular Hemoglobin 35.1 H Mean Corpuscular Hemoglobin Concent 36.2 Red Cell Distribution Width 18.6 H Platelet Count 151 Mean Platelet Volume 10.7 H Immature Granulocytes % 1.000 H Neutrophils % 78.9 H Lymphocytes % 9.4 L Monocytes % 8.6 Eosinophils % 1.1 Basophils % 1.0 Nucleated Red Blood Cells % 0.0 Immature Granulocytes # 0.080 H Neutrophils # 6.5 Lymphocytes # 0.8 Monocytes # 0.7 Eosinophils # 0.1 Basophils # 0.1 Nucleated Red Blood Cells # 0.0 Sodium Level 134 L Potassium Level 3.3 L Chloride Level 102 Carbon Dioxide Level 24 Anion Gap 8 Blood Urea Nitrogen 6 L Creatinine 0.91 Est Glomerular Filtrat Rate mL/min > 60 Glucose Level 94 Calcium Level 8.5 Total Bilirubin 20.7 H Direct Bilirubin 16.90 *H Indirect Bilirubin 3.8 H Aspartate Amino Transf (AST/SGOT) 172 H Alanine Aminotransferase (ALT/SGPT) 63 Alkaline Phosphatase 163 H Total Protein 5.9 L Albumin 2.2 L Globulin 3.70 H Albumin/Globulin Ratio 0.59 Prothrombin Time 19.1 H Prothrombin Time Ratio 1.5 INR International Normalized Ratio 1.60 Medications Medication Current Medications IV Flush (NS 3 ml) 3 ml PER PROTOCOL IV Last administered on 07/26/18 20:25; Admin Dose 3 ML; Start 07/18/18 at 22:30 Acetaminophen (Tylenol Tab) 650 mg Q6H PRN PO .PAIN 1-3 OR TEMP Last administered on 07/20/18 20:14; Admin Dose 650 MG; Start 07/18/18 at 22:30 Pantoprazole (Protonix Tab) 40 mg DAILY@06 PO Last administered on 07/27/18 05:44; Admin Dose 40 MG; Start 07/19/18 at 06:00 Pentoxifylline (Trental) 400 mg TID PO Last administered on 07/27/18 12:56; Admin Dose 400 MG; Start 07/19/18 at 13:00; Stop 08/16/18 at 12:59 Rifaximin (Xifaxan) 550 mg BID PO Last administered on 07/27/18 08:58; Admin Dose 550 MG; Start 07/20/18 at 21:00 Furosemide (Lasix) 20 mg DAILY PO Last administered on 07/27/18 08:58; Admin Dose 20 MG; Start 07/22/18 at 13:00 Morphine Sulfate (morphine) 6 mg Q4H PRN PO SEVERE PAIN LEVEL 7-10 Last administered on 07/27/18 05:44; Admin Dose 6 MG; Start 07/23/18 at 18:30 Propranolol HCl (Inderal) 10 mg TID PO Last administered on 07/26/18 08:21; Admin Dose 10 MG; Start 07/24/18 at 21:00 Spironolactone (Aldactone) 100 mg DAILY PO Last administered on 07/27/18 08:58; Admin Dose 100 MG; Start 07/26/18 at 09:00 Lactulose (Enulose) 20 gm BID PO Last administered on 07/27/18 08:58; Admin Dose 20 GM; Start 07/25/18 at 21:00 AURELIA PRINGLE MD Jul 27, 2018 17:43
[2018-07-27 20:44] VITALS: BP 98/56; PULSE 69; RESP 20
[2018-07-27] MEDS: traMADol 50 MG TAB PO PRN (23:16)
[2018-07-28 01:47] VITALS: BP 100/64; PULSE 74; RESP 20
[2018-07-28] MEDS: PANTOPRAZOLE (EC) 40 MG TAB PO SCH (05:09)
[2018-07-28 07:30] VITALS: BP 107/59; PULSE 70; RESP 20
[2018-07-28] MEDS: SPIRONOLACTONE 50 MG TAB PO SCH (08:43)
[2018-07-28] MEDS: PROPRANOLOL 10 MG TAB PO SCH ×3 (08:44→20:56)
[2018-07-28] MEDS: PENTOXIFYLLINE (SR) 400 MG TAB PO SCH ×3 (08:44→20:56)
[2018-07-28] MEDS: RIFAXIMIN 550 MG TAB PO SCH ×2 (08:44→20:56)
[2018-07-28] MEDS: LACTULOSE 30ML CUP PO SCH ×2 (08:47→20:56)
[2018-07-28] MEDS ORDERED: FUROSEMIDE 40 MG TAB PO SCH (09:00)
[2018-07-28] MEDS: ALBUMIN HUMAN 25% 100 ML IV SCH ×2 (09:46→16:37)
[2018-07-28] MEDS: traMADol 50 MG TAB PO PRN ×2 (09:58→19:51)
[2018-07-28 13:58] VITALS: BP 96/55; PULSE 66; RESP 20
--- NOTE | 2018-07-28 14:52 | PN ---
Date/Time of Note Date/Time of Note DATE: 07/28/18 TIME: 14:35 Assessment/Plan VTE Prophylaxis Risk score (from Ns)>0 risk: 4 SCD applied (from Ns): Yes Pharmacological prophylaxis: heparin Lines/Catheters IV C[facility] Type (from [facility]): Saline Lock Reason Cath still needed: urinary retention Assessment/Plan Hospital Course 43 yo male with severe alcoholic hepatitis and cirrhosis Now with severe SCOTT: - hold diuretics - Start IV albumin -UA, Marge - midodrine, octreotide, renal consult if no imrpovement tomorrow Alcoholic hepatitis: - Continue supportive care - Pentoxifylline course - Hold diuretics given SCOTT Cirrhosis with varices - Propranolol - Lactulose and rifaxamin Discharge plan: Patient very tenuous. Survival entirely dependent on spontaneous liver recovery which seems unlikely. He is not a candidate for liver transplant given alcohol binge before admission prompting this episode Result Diagram: 07/28/18 0557 07/28/18 0557 Results 24hrs Laboratory Tests Test 07/28/18 05:57 07/28/18 11:29 White Blood Count 9.4 Red Blood Count 3.14 L Hemoglobin 11.1 L Hematocrit 30.4 L Mean Corpuscular Volume 96.8 Mean Corpuscular Hemoglobin 35.4 H Mean Corpuscular Hemoglobin Concent 36.5 Red Cell Distribution Width 18.6 H Platelet Count 156 Mean Platelet Volume 11.1 H Immature Granulocytes % 1.000 H Neutrophils % 83.4 H Lymphocytes % 7.2 L Monocytes % 6.6 Eosinophils % 1.1 Basophils % 0.7 Nucleated Red Blood Cells % 0.0 Immature Granulocytes # 0.090 H Neutrophils # 7.9 H Lymphocytes # 0.7 L Monocytes # 0.6 Eosinophils # 0.1 Basophils # 0.1 Nucleated Red Blood Cells # 0.0 Prothrombin Time 18.8 H Prothrombin Time Ratio 1.5 INR International Normalized Ratio 1.56 Sodium Level 132 L Potassium Level 3.5 Chloride Level 99 Carbon Dioxide Level 24 Anion Gap 9 Blood Urea Nitrogen 7 Creatinine 1.09 Est Glomerular Filtrat Rate mL/min > 60 Glucose Level 112 Calcium Level 8.5 Total Bilirubin 22.1 H Direct Bilirubin 18.20 *H Indirect Bilirubin 3.9 H Aspartate Amino Transf (AST/SGOT) 175 H Alanine Aminotransferase (ALT/SGPT) 69 Alkaline Phosphatase 162 H Total Protein 6.2 Albumin 2.4 L Globulin 3.80 H Albumin/Globulin Ratio 0.63 Urine Color AKANKSHA Urine Clarity SLIGHTLY CLOUDY A Urine pH 6.0 Urine Specific [place] 1.010 Urine Ketones NEGATIVE Urine Nitrite NEGATIVE Urine Bilirubin 2+ H Urine Urobilinogen 2+ H Urine Leukocyte Esterase NEGATIVE Urine Microscopic RBC 1 Urine Microscopic WBC 2 Urine Bacteria FEW A Urine Mucus FEW A Urine Hemoglobin NEGATIVE Urine Random Creatinine 90.94 Urine Random Sodium 33 Urine Glucose NEGATIVE Urine Total Protein NEGATIVE Subjective 24 Hr Interval Summary Free Text/Dictation Now in renal failure Discussed grave prognosis with him and his DPOA by phone He is wanting to go to detox program, though told he is medically unstable now Admits to drinking prior to admission here Exam/Review of Systems Exam Vitals Vital Signs Date Temp Pulse Resp B/P (MAP) Pulse Ox O2 O2 Flow FiO2 Time Delivery Rate 07/28/18 97.5 66 20 96/55 (69) 100 Room Air 13:58 Intake and Output 07/27/18 07/27/18 07/28/18 1515:00 23:00 07:00 IntakeIntake Total 360 ml 400 ml OutputOutput Total 500 ml BalanceBalance -140 ml 400 ml Exam Marked jaundice AOx3, no encepheloatphy or asterixis Breathign comfortably Tachy, regular Abdomen obese, soft, ntd Ext with edema b/l Results Results 24hrs Laboratory Tests Test 07/28/18 05:57 07/28/18 11:29 White Blood Count 9.4 Red Blood Count 3.14 L Hemoglobin 11.1 L Hematocrit 30.4 L Mean Corpuscular Volume 96.8 Mean Corpuscular Hemoglobin 35.4 H Mean Corpuscular Hemoglobin Concent 36.5 Red Cell Distribution Width 18.6 H Platelet Count 156 Mean Platelet Volume 11.1 H Immature Granulocytes % 1.000 H Neutrophils % 83.4 H Lymphocytes % 7.2 L Monocytes % 6.6 Eosinophils % 1.1 Basophils % 0.7 Nucleated Red Blood Cells % 0.0 Immature Granulocytes # 0.090 H Neutrophils # 7.9 H Lymphocytes # 0.7 L Monocytes # 0.6 Eosinophils # 0.1 Basophils # 0.1 Nucleated Red Blood Cells # 0.0 Prothrombin Time 18.8 H Prothrombin Time Ratio 1.5 INR International Normalized Ratio 1.56 Sodium Level 132 L Potassium Level 3.5 Chloride Level 99 Carbon Dioxide Level 24 Anion Gap 9 Blood Urea Nitrogen 7 Creatinine 1.09 Est Glomerular Filtrat Rate mL/min > 60 Glucose Level 112 Calcium Level 8.5 Total Bilirubin 22.1 H Direct Bilirubin 18.20 *H Indirect Bilirubin 3.9 H Aspartate Amino Transf (AST/SGOT) 175 H Alanine Aminotransferase (ALT/SGPT) 69 Alkaline Phosphatase 162 H Total Protein 6.2 Albumin 2.4 L Globulin 3.80 H Albumin/Globulin Ratio 0.63 Urine Color AKANKSHA Urine Clarity SLIGHTLY CLOUDY A Urine pH 6.0 Urine Specific [place] 1.010 Urine Ketones NEGATIVE Urine Nitrite NEGATIVE Urine Bilirubin 2+ H Urine Urobilinogen 2+ H Urine Leukocyte Esterase NEGATIVE Urine Microscopic RBC 1 Urine Microscopic WBC 2 Urine Bacteria FEW A Urine Mucus FEW A Urine Hemoglobin NEGATIVE Urine Random Creatinine 90.94 Urine Random Sodium 33 Urine Glucose NEGATIVE Urine Total Protein NEGATIVE Medications Medication Current Medications IV Flush (NS 3 ml) 3 ml PER PROTOCOL IV Last administered on 07/26/18 20:25; Admin Dose 3 ML; Start 07/18/18 at 22:30 Pantoprazole (Protonix Tab) 40 mg DAILY@06 PO Last administered on 07/28/18 05:09; Admin Dose 40 MG; Start 07/19/18 at 06:00 Pentoxifylline (Trental) 400 mg TID PO Last administered on 07/28/18 13:53; Admin Dose 400 MG; Start 07/19/18 at 13:00; Stop 08/16/18 at 12:59 Rifaximin (Xifaxan) 550 mg BID PO Last administered on 07/28/18 08:44; Admin Dose 550 MG; Start 07/20/18 at 21:00 Propranolol HCl (Inderal) 10 mg TID PO Last administered on 07/28/18 08:44; Admin Dose 10 MG; Start 07/24/18 at 21:00 Spironolactone (Aldactone) 100 mg DAILY PO Last administered on 07/28/18 08:43; Admin Dose 100 MG; Start 07/26/18 at 09:00; Status Hold Lactulose (Enulose) 20 gm BID PO Last administered on 07/27/18 08:58; Admin Dose 20 GM; Start 07/25/18 at 21:00 Furosemide (Lasix) 40 mg DAILY PO Last administered on 07/28/18 08:44; Admin Dose 40 MG; Start 07/28/18 at 09:00; Status Hold Tramadol HCl (Ultram) 50 mg TID PRN PO PAIN LEVEL 7-10 Last administered on 07/28/18at 09:58; Admin Dose 50 MG; Start 07/27/18 at 18:00 Albumin Human 100 ml @ 100 mls/hr Q8H IV Last administered on 07/28/18at 09:46; Admin Dose 100 MLS/HR; Start 07/28/18 at 09:30; Stop 07/29/18 at 02:29 AURELIA PRINGLE MD Jul 28, 2018 14:48
--- NOTE | 2018-07-28 17:16 | PN ---
Date/Time of Note Date/Time of Note DATE: 07/28/18 TIME: 17:12 Assessment/Plan VTE Prophylaxis [place] [facility] risk: 4 [place]CD applied [place] [facility] Yes Pharmacological prophylaxis: NA/contraindicated Pharm contraindication: liver dx Lines/Catheters IV Catheter Type (from [facility]): Saline Lock Assessment/Plan Assessment/Plan Assessment: Alcoholic hepatitis- (Discriminant function is 44.2) -Coagulopathy -Thrombocytopenia- improving EGD 07/23/18 Portal hypertensive gastropathy Non-bleeding EV grade 0-1, too small to band Direct Hyperbilirubinemia- likely 2/2 to liver disease - Imaging shows no intra or extrahepatic biliary dilatation is seen. The common bile duct measures 5.8 mm Hepatic encephalopathy- resolved Diverticulitis- on Zosyn Alcohol abuse Plan: Continue Pentoxifylline - patient was not a candidate for steroids d/t diverticulitis on the admission Continue Rifaximin and lactulose- tritiate to 3 bms per day (only 1 bm in the past 2 days will increase to BID) 2gm Na diet- monitor daily weight and I&O's Continue Zosyn for diverticulitis Pt will need follow up with hepatology post discharge Patient seen in collaboration with Dr. Beebe Subjective: Course reviewed with nursing staff Patient interviewed and examined All labs, imaging and other results reviewed Patient is more lethargic today. He has been refusing Lactulose. He had 1 small BM today. Poor appetite. Bilirubin is trending up. Continue present regimen. Maintain close observation. PHYSICAL EXAMINATION: GENERAL: Awake and alert x3, anasarca, in no acute distress SKIN: Profound jaundice, no evidence of bleeding diathesis CHEST: Inspection within normal limits. CARDIOVASCULAR: Heart: Regular rate and rhythm RESPIRATORY: Lungs clear to auscultation GASTROINTESTINAL AND LIVER: Abdomen: Soft, non tenderness, distended, no hernias, no masses, no organomegaly, ascites, no guarding, no rebound tenderness, normoactive bowel sounds. Rectal: Deferred. EXTREMITIES: No cyanosis, lower extremity edema. Result Diagram: 07/28/18 0557 07/28/18 0557 Results 24hrs Laboratory Tests Test 07/28/18 05:57 07/28/18 11:29 White Blood Count 9.4 Red Blood Count 3.14 L Hemoglobin 11.1 L Hematocrit 30.4 L Mean Corpuscular Volume 96.8 Mean Corpuscular Hemoglobin 35.4 H Mean Corpuscular Hemoglobin Concent 36.5 Red Cell Distribution Width 18.6 H Platelet Count 156 Mean Platelet Volume 11.1 H Immature Granulocytes % 1.000 H Neutrophils % 83.4 H Lymphocytes % 7.2 L Monocytes % 6.6 Eosinophils % 1.1 Basophils % 0.7 Nucleated Red Blood Cells % 0.0 Immature Granulocytes # 0.090 H Neutrophils # 7.9 H Lymphocytes # 0.7 L Monocytes # 0.6 Eosinophils # 0.1 Basophils # 0.1 Nucleated Red Blood Cells # 0.0 Prothrombin Time 18.8 H Prothrombin Time Ratio 1.5 INR International Normalized Ratio 1.56 Sodium Level 132 L Potassium Level 3.5 Chloride Level 99 Carbon Dioxide Level 24 Anion Gap 9 Blood Urea Nitrogen 7 Creatinine 1.09 Est Glomerular Filtrat Rate mL/min > 60 Glucose Level 112 Calcium Level 8.5 Total Bilirubin 22.1 H Direct Bilirubin 18.20 *H Indirect Bilirubin 3.9 H Aspartate Amino Transf (AST/SGOT) 175 H Alanine Aminotransferase (ALT/SGPT) 69 Alkaline Phosphatase 162 H Total Protein 6.2 Albumin 2.4 L Globulin 3.80 H Albumin/Globulin Ratio 0.63 Urine Color AKANKSHA Urine Clarity SLIGHTLY CLOUDY A Urine pH 6.0 Urine Specific [place] 1.010 Urine Ketones NEGATIVE Urine Nitrite NEGATIVE Urine Bilirubin 2+ H Urine Urobilinogen 2+ H Urine Leukocyte Esterase NEGATIVE Urine Microscopic RBC 1 Urine Microscopic WBC 2 Urine Bacteria FEW A Urine Mucus FEW A Urine Hemoglobin NEGATIVE Urine Random Creatinine 90.94 Urine Random Sodium 33 Urine Glucose NEGATIVE Urine Total Protein NEGATIVE CC: EVAN BEEBE MD ; Exam/Review of Systems Exam Vitals Vital Signs Date Temp Pulse Resp B/P (MAP) Pulse Ox O2 O2 Flow FiO2 Time Delivery Rate 07/28/18 97.5 66 20 96/55 (69) 100 Room Air 13:58 Intake and Output 07/27/18 07/27/18 07/28/18 1515:00 23:00 07:00 IntakeIntake Total 360 ml 400 ml OutputOutput Total 500 ml BalanceBalance -140 ml 400 ml Results Results 24hrs Laboratory Tests Test 07/28/18 05:57 07/28/18 11:29 White Blood Count 9.4 Red Blood Count 3.14 L Hemoglobin 11.1 L Hematocrit 30.4 L Mean Corpuscular Volume 96.8 Mean Corpuscular Hemoglobin 35.4 H Mean Corpuscular Hemoglobin Concent 36.5 Red Cell Distribution Width 18.6 H Platelet Count 156 Mean Platelet Volume 11.1 H Immature Granulocytes % 1.000 H Neutrophils % 83.4 H Lymphocytes % 7.2 L Monocytes % 6.6 Eosinophils % 1.1 Basophils % 0.7 Nucleated Red Blood Cells % 0.0 Immature Granulocytes # 0.090 H Neutrophils # 7.9 H Lymphocytes # 0.7 L Monocytes # 0.6 Eosinophils # 0.1 Basophils # 0.1 Nucleated Red Blood Cells # 0.0 Prothrombin Time 18.8 H Prothrombin Time Ratio 1.5 INR International Normalized Ratio 1.56 Sodium Level 132 L Potassium Level 3.5 Chloride Level 99 Carbon Dioxide Level 24 Anion Gap 9 Blood Urea Nitrogen 7 Creatinine 1.09 Est Glomerular Filtrat Rate mL/min > 60 Glucose Level 112 Calcium Level 8.5 Total Bilirubin 22.1 H Direct Bilirubin 18.20 *H Indirect Bilirubin 3.9 H Aspartate Amino Transf (AST/SGOT) 175 H Alanine Aminotransferase (ALT/SGPT) 69 Alkaline Phosphatase 162 H Total Protein 6.2 Albumin 2.4 L Globulin 3.80 H Albumin/Globulin Ratio 0.63 Urine Color AKANKSHA Urine Clarity SLIGHTLY CLOUDY A Urine pH 6.0 Urine Specific [place] 1.010 Urine Ketones NEGATIVE Urine Nitrite NEGATIVE Urine Bilirubin 2+ H Urine Urobilinogen 2+ H Urine Leukocyte Esterase NEGATIVE Urine Microscopic RBC 1 Urine Microscopic WBC 2 Urine Bacteria FEW A Urine Mucus FEW A Urine Hemoglobin NEGATIVE Urine Random Creatinine 90.94 Urine Random Sodium 33 Urine Glucose NEGATIVE Urine Total Protein NEGATIVE Medications Medication Current Medications IV Flush (NS 3 ml) 3 ml PER PROTOCOL IV Last administered on 07/26/18at 20:25; Admin Dose 3 ML; Start 07/18/18 at 22:30 Pantoprazole (Protonix Tab) 40 mg DAILY@06 PO Last administered on 07/28/18 05:09; Admin Dose 40 MG; Start 07/19/18 at 06:00 Pentoxifylline (Trental) 400 mg TID PO Last administered on 07/28/18 13:53; Admin Dose 400 MG; Start 07/19/18 at 13:00; Stop 08/16/18 at 12:59 Rifaximin (Xifaxan) 550 mg BID PO Last administered on 07/28/18 08:44; Admin Dose 550 MG; Start 07/20/18 at 21:00 Propranolol HCl (Inderal) 10 mg TID PO Last administered on 07/28/18 08:44; Admin Dose 10 MG; Start 07/24/18 at 21:00 Spironolactone (Aldactone) 100 mg DAILY PO Last administered on 07/28/18 08:43; Admin Dose 100 MG; Start 07/26/18 at 09:00; Status Hold Lactulose (Enulose) 20 gm BID PO Last administered on 07/27/18 08:58; Admin D ose 20 GM; Start 07/25/18 at 21:00 Furosemide (Lasix) 40 mg DAILY PO Last administered on 07/28/18 08:44; Admin Dose 40 MG; Start 07/28/18 at 09:00; Status Hold Tramadol HCl (Ultram) 50 mg TID PRN PO PAIN LEVEL 7-10 Last administered on 07/28/18 09:58; Admin Dose 50 MG; Start 07/27/18 at 18:00 Albumin Human 100 ml @ 100 mls/hr Q8H IV Last administered on 07/28/18 16:37; Admin Dose 100 MLS/HR; Start 07/28/18 at 09:30; Stop 07/29/18 at 02:29 RANJEET BUSTAMANTE NP Jul 28, 2018 17:16
[2018-07-28 20:00] VITALS: BP 108/66; PULSE 68; RESP 19
[2018-07-29] MEDS: ALBUMIN HUMAN 25% 100 ML IV SCH (01:46)
[2018-07-29] MEDS: traMADol 50 MG TAB PO PRN ×2 (01:51→10:44)
[2018-07-29 03:48] VITALS: BP 101/60; PULSE 73; RESP 18
[2018-07-29] MEDS: PANTOPRAZOLE (EC) 40 MG TAB PO SCH (06:01)
[2018-07-29 07:20] VITALS: BP 112/58; PULSE 75; RESP 18
[2018-07-29] MEDS: PROPRANOLOL 10 MG TAB PO SCH ×3 (08:38→20:23)
[2018-07-29] MEDS: RIFAXIMIN 550 MG TAB PO SCH ×2 (08:39→20:22)
[2018-07-29] MEDS: PENTOXIFYLLINE (SR) 400 MG TAB PO SCH ×3 (08:39→20:23)
[2018-07-29] MEDS: LACTULOSE 30ML CUP PO SCH ×2 (08:39→20:23)
[2018-07-29 14:14] VITALS: BP 111/66; PULSE 73; RESP 18
--- NOTE | 2018-07-29 17:03 | PN ---
Date/Time of Note Date/Time of Note DATE: 07/29/18 TIME: 16:56 Assessment/Plan VTE Prophylaxis Risk score (from [facility])>0 risk: 1 Pharmacological prophylaxis: NA/contraindicated Pharm contraindication: blood coag disorder Lines/Catheters IV Catheter Type (from Nrsg): Peripheral IV Assessment/Plan Hospital Course 43 yo male with severe alcoholic hepatitis and cirrhosis SCOTT-resolved Alcoholic hepatitis - Continue supportive care - Pentoxifylline course Cirrhosis with varices and ascites - Propranolol - Lactulose and rifaxamin -Continue Lasix and Aldactone -Patient now agreeable to paracentesis Discharge plan: Patient with persistent liver dysfunction but may have recovery, plan is for paracentesis tomorrow with possible DC, socially responsible investment adviser to discuss with family about alcohol rehab programs Result Diagram: 07/29/18 0602 07/29/18 0602 Results 24hrs Laboratory Tests Test 07/29/18 06:02 White Blood Count 8.5 Red Blood Count 2.95 L Hemoglobin 10.2 L Hematocrit 28.5 L Mean Corpuscular Volume 96.6 Mean Corpuscular Hemoglobin 34.6 H Mean Corpuscular Hemoglobin Concent 35.8 Red Cell Distribution Width 18.6 H Platelet Count 144 Mean Platelet Volume 11.3 H Immature Granulocytes % 0.700 H Neutrophils % 80.2 H Lymphocytes % 9.8 L Monocytes % 7.3 Eosinophils % 1.2 Basophils % 0.8 Nucleated Red Blood Cells % 0.0 Immature Granulocytes # 0.060 H Neutrophils # 6.8 Lymphocytes # 0.8 Monocytes # 0.6 Eosinophils # 0.1 Basophils # 0.1 Nucleated Red Blood Cells # 0.0 Sodium Level 136 Potassium Level 3.0 L Chloride Level 101 Carbon Dioxide Level 25 Anion Gap 10 Blood Urea Nitrogen 7 Creatinine 1.19 Est Glomerular Filtrat Rate mL/min > 60 Glucose Level 92 Calcium Level 8.6 Total Bilirubin 24.2 H Direct Bilirubin 19.00 *H Indirect Bilirubin 5.2 H Aspartate Amino Transf (AST/SGOT) 162 H Alanine Aminotransferase (ALT/SGPT) 59 Alkaline Phosphatase 148 H Total Protein 6.2 Albumin 2.6 L Globulin 3.60 H Albumin/Globulin Ratio 0.72 Subjective 24 Hr Interval Summary Constitutional: no complaints Exam/Review of Systems Exam Vitals Vital Signs Date Temp Pulse Resp B/P (MAP) Pulse Ox O2 O2 Flow FiO2 Time Delivery Rate 07/29/18 97.9 73 18 111/66 96 14:14 (81) 07/28/18 Room Air 13:58 Intake and Output 07/28/18 07/28/18 07/29/18 1515:00 23:00 07:00 IntakeIntake Total 100 ml 420 ml 100 ml OutputOutput Total 660 ml BalanceBalance -560 ml 420 ml 100 ml Constitutional: alert, oriented Respiratory: clear to auscultation Cardiovascular: regular rate and rhythm Gastrointestinal: soft, distended Musculoskeletal: nl extremities to inspection Results Results 24hrs Laboratory Tests Test 07/29/18 06:02 White Blood Count 8.5 Red Blood Count 2.95 L Hemoglobin 10.2 L Hematocrit 28.5 L Mean Corpuscular Volume 96.6 Mean Corpuscular Hemoglobin 34.6 H Mean Corpuscular Hemoglobin Concent 35.8 Red Cell Distribution Width 18.6 H Platelet Count 144 Mean Platelet Volume 11.3 H Immature Granulocytes % 0.700 H Neutrophils % 80.2 H Lymphocytes % 9.8 L Monocytes % 7.3 Eosinophils % 1.2 Basophils % 0.8 Nucleated Red Blood Cells % 0.0 Immature Granulocytes # 0.060 H Neutrophils # 6.8 Lymphocytes # 0.8 Monocytes # 0.6 Eosinophils # 0.1 Basophils # 0.1 Nucleated Red Blood Cells # 0.0 Sodium Level 136 Potassium Level 3.0 L Chloride Level 101 Carbon Dioxide Level 25 Anion Gap 10 Blood Urea Nitrogen 7 Creatinine 1.19 Est Glomerular Filtrat Rate mL/min > 60 Glucose Level 92 Calcium Level 8.6 Total Bilirubin 24.2 H Direct Bilirubin 19.00 *H Indirect Bilirubin 5.2 H Aspartate Amino Transf (AST/SGOT) 162 H Alanine Aminotransferase (ALT/SGPT) 59 Alkaline Phosphatase 148 H Total Protein 6.2 Albumin 2.6 L Globulin 3.60 H Albumin/Globulin Ratio 0.72 Medications Medication Current Medications IV Flush (NS 3 ml) 3 ml PER PROTOCOL IV Last administered on 07/26/18at 20:25; Admin Dose 3 ML; Start 07/18/18 at 22:30 Pantoprazole (Protonix Tab) 40 mg DAILY@06 PO Last administered on 07/29/18at 06:01; Admin Dose 40 MG; Start 07/19/18 at 06:00 Pentoxifylline (Trental) 400 mg TID PO Last administered on 07/29/18 12:28; Admin Dose 400 MG; Start 07/19/18 at 13:00; Stop 08/16/18 at 12:59 Rifaximin (Xifaxan) 550 mg BID PO Last administered on 07/29/18 08:39; Admin Dose 550 MG; Start 07/20/18 at 21:00 Propranolol HCl (Inderal) 10 mg TID PO Last administered on 07/29/18 12:28; Admin Dose 10 MG; Start 07/24/18 at 21:00 Spironolactone (Aldactone) 100 mg DAILY PO Last administered on 07/28/18 08:43; Admin Dose 100 MG; Start 07/26/18 at 09:00; Status Hold Lactulose (Enulose) 20 gm BID PO Last administered on 07/29/18 08:39; Admin Dose 20 GM; Start 07/25/18 at 21:00 Furosemide (Lasix) 40 mg DAILY PO Last administered on 07/28/18 08:44; Admin Dose 40 MG; Start 07/28/18 at 09:00; Status Hold Tramadol HCl (Ultram) 50 mg TID PRN PO PAIN LEVEL 7-10 Last administered on 07/29/18 10:44; Admin Dose 50 MG; Start 07/27/18 at 18:00 CELE MARTÍNEZ Jul 29, 2018 17:02
[2018-07-29 19:59] VITALS: BP 102/52; PULSE 73; RESP 18
[2018-07-30 02:17] VITALS: BP 99/54; PULSE 73; RESP 18
[2018-07-30] MEDS: PANTOPRAZOLE (EC) 40 MG TAB PO SCH (05:24)
[2018-07-30 08:42] VITALS: BP 101/56; PULSE 67; RESP 17
[2018-07-30] MEDS: PENTOXIFYLLINE (SR) 400 MG TAB PO SCH ×3 (08:48→20:25)
[2018-07-30] MEDS: RIFAXIMIN 550 MG TAB PO SCH ×2 (08:48→20:25)
[2018-07-30] MEDS: PROPRANOLOL 10 MG TAB PO SCH ×3 (08:49→20:23)
[2018-07-30] MEDS: LACTULOSE 30ML CUP PO SCH ×2 (08:52→20:24)
[2018-07-30] MEDS ORDERED: POTASSIUM CHLORIDE (SR) 20 MEQ TAB PO STA (10:03)
[2018-07-30] MEDS: POTASSIUM CHLORIDE 100 ML IVPB SCH ×2 (10:52→17:27)
[2018-07-30] MEDS ORDERED: TRAM50TA2 PO (11:06)
[2018-07-30] MEDS ORDERED: PENT400T9 PO (11:06)
[2018-07-30] MEDS ORDERED: PANT40TA4 PO (11:06)
[2018-07-30] MEDS ORDERED: LACT20SO2 PO (11:06)
[2018-07-30] MEDS ORDERED: RIFA550T4 PO (11:06)
[2018-07-30] MEDS ORDERED: PROP10TA6 PO (11:06)
[2018-07-30] MEDS ORDERED: FURO40TA4 PO (11:06)
[2018-07-30] MEDS ORDERED: SPIR50TA PO (11:06)
--- NOTE | 2018-07-30 11:07 | PDOCDIS ---
Discharge Instructions CONDITION [id number] Patient Condition: [id number] Good HOME CARE INSTRUCTIONS: [id number] Diet Instructions: [id number] Reduced Sodium ACTIVITY: [id number] Activity Restrictions: [id number] No Restrictions FOLLOW UP/APPOINTMENTS Follow-up Plan FOLLOW UP WITH YOUR PCP IN 1-2 WEEKS CELE MARTÍNEZ Jul 30, 2018 11:07
[2018-07-30] MEDS: traMADol 50 MG TAB PO PRN ×2 (11:29→23:23)
[2018-07-30 14:26] VITALS: BP 106/67; PULSE 69; RESP 18
--- NOTE | 2018-07-30 15:45 | PN ---
Date/Time of Note Date/Time of Note DATE: 07/30/18 TIME: 15:44 Assessment/Plan VTE Prophylaxis Risk score (from Nsg)>0 risk: 1 Pharmacological prophylaxis: NA/contraindicated Pharm contraindication: liver dx Lines/Catheters IV Catheter Type (from Nrs): Peripheral IV Assessment/Plan Hospital Course 43 yo male with severe alcoholic hepatitis and cirrhosis SCOTT-resolved Alcoholic hepatitis - Continue supportive care - Pentoxifylline course Cirrhosis with varices and ascites - Propranolol - Lactulose and rifaxamin -Continue Lasix and Aldactone -Ultrasound of the abdomen shows an insufficient amount of fluid for paracentesis Discharge plan: Patient with persistent liver dysfunction but may have recovery, plan is for DC to home tomorrow, web content & social media manager to discuss with family about alcohol rehab programs Result Diagram: 07/30/18 0650 07/30/18 0650 Results 24hrs Laboratory Tests Test 07/30/18 06:50 White Blood Count 9.1 Red Blood Count 2.90 L Hemoglobin 10.1 L Hematocrit 28.0 L Mean Corpuscular Volume 96.6 Mean Corpuscular Hemoglobin 34.8 H Mean Corpuscular Hemoglobin Concent 36.1 Red Cell Distribution Width 19.2 H Platelet Count 153 Mean Platelet Volume 11.6 H Immature Granulocytes % 0.800 H Neutrophils % 81.7 H Lymphocytes % 9.1 L Monocytes % 6.5 Eosinophils % 1.1 Basophils % 0.8 Nucleated Red Blood Cells % 0.0 Immature Granulocytes # 0.070 H Neutrophils # 7.5 Lymphocytes # 0.8 Monocytes # 0.6 Eosinophils # 0.1 Basophils # 0.1 Nucleated Red Blood Cells # 0.0 Prothrombin Time 19.0 H Prothrombin Time Ratio 1.5 INR International Normalized Ratio 1.58 Activated Partial Thromboplast Time 42.6 H Sodium Level 135 Potassium Level 3.0 L Chloride Level 103 Carbon Dioxide Level 24 Anion Gap 8 Blood Urea Nitrogen 6 L Creatinine 1.03 Est Glomerular Filtrat Rate mL/min > 60 Glucose Level 91 Calcium Level 8.5 Magnesium Level 2.1 Subjective 24 Hr Interval Summary Constitutional: no complaints Exam/Review of Systems Exam Vitals Vital Signs Date Temp Pulse Resp B/P (MAP) Pulse Ox O2 O2 Flow FiO2 Time Delivery Rate 07/30/18 98.3 69 18 106/67 96 Room Air 14:26 (80) Intake and Output 07/29/18 07/29/1807/30/19 1414:59 22:59 06:59 IntakeIntake Total 700 ml 918 ml BalanceBalance 700 ml 918 ml Constitutional: alert, oriented Respiratory: clear to auscultation Cardiovascular: regular rate and rhythm Gastrointestinal: soft Musculoskeletal: nl extremities to inspection Results Results 24hrs Laboratory Tests Test 07/30/18 06:50 White Blood Count 9.1 Red Blood Count 2.90 L Hemoglobin 10.1 L Hematocrit 28.0 L Mean Corpuscular Volume 96.6 Mean Corpuscular Hemoglobin 34.8 H Mean Corpuscular Hemoglobin Concent 36.1 Red Cell Distribution Width 19.2 H Platelet Count 153 Mean Platelet Volume 11.6 H Immature Granulocytes % 0.800 H Neutrophils % 81.7 H Lymphocytes % 9.1 L Monocytes % 6.5 Eosinophils % 1.1 Basophils % 0.8 Nucleated Red Blood Cells % 0.0 Immature Granulocytes # 0.070 H Neutrophils # 7.5 Lymphocytes # 0.8 Monocytes # 0.6 Eosinophils # 0.1 Basophils # 0.1 Nucleated Red Blood Cells # 0.0 Prothrombin Time 19.0 H Prothrombin Time Ratio 1.5 INR International Normalized Ratio 1.58 Activated Partial Thromboplast Time 42.6 H Sodium Level 135 Potassium Level 3.0 L Chloride Level 103 Carbon Dioxide Level 24 Anion Gap 8 Blood Urea Nitrogen 6 L Creatinine 1.03 Est Glomerular Filtrat Rate mL/min > 60 Glucose Level 91 Calcium Level 8.5 Magnesium Level 2.1 Medications Medication Current Medications IV Flush (NS 3 ml) 3 ml PER PROTOCOL IV Last administered on 07/26/18at 20:25; Admin Dose 3 ML; Start 07/18/18 at 22:30 Pantoprazole (Protonix Tab) 40 mg DAILY@06 PO Last administered on 07/30/18at 05:24; Admin Dose 40 MG; Start 07/19/18 at 06:00 Pentoxifylline (Trental) 400 mg TID PO Last administered on 07/30/18at 14:08; Admin Dose 400 MG; Start 07/19/18 at 13:00; Stop 08/16/18 at 12:59 Rifaximin (Xifaxan) 550 mg BID PO Last administered on 07/30/18at 08:48; Admin Dose 550 MG; Start 07/20/18 at 21:00 Propranolol HCl (Inderal) 10 mg TID PO Last administered on 07/30/18 14:08; Admin Dose 10 MG; Start 07/24/18 at 21:00 Spironolactone (Aldactone) 100 mg DAILY PO Last administered on 07/28/18 08:43; Admin Dose 100 MG; Start 07/26/18 at 09:00; Status Hold Lactulose (Enulose) 20 gm BID PO Last administered on 07/29/18 20:23; Admin Dose 20 GM; Start 07/25/18 at 21:00 Furosemide (Lasix) 40 mg DAILY PO Last administered on 07/28/18 08:44; Admin Dose 40 MG; Start 07/28/18 at 09:00; Status Hold Tramadol HCl (Ultram) 50 mg TID PRN PO PAIN LEVEL 7-10 Last administered on 07/30/18 11:29; Admin Dose 50 MG; Start 07/27/18 at 18:00 CELE MARTÍNEZ Jul 30, 2018 15:45
[2018-07-30 19:56] VITALS: BP 101/61; PULSE 68; RESP 20
[2018-07-30 20:22] VITALS: BP 98/55; PULSE 70
[2018-07-31 01:32] VITALS: BP 106/64; PULSE 74; RESP 20
[2018-07-31] MEDS: PANTOPRAZOLE (EC) 40 MG TAB PO SCH (05:36)
[2018-07-31] MEDS: traMADol 50 MG TAB PO PRN (05:37)
[2018-07-31 08:00] VITALS: BP 87/49; PULSE 69; RESP 18
[2018-07-31] MEDS: LACTULOSE 30ML CUP PO SCH ×2 (08:34→09:00)
[2018-07-31] MEDS: PENTOXIFYLLINE (SR) 400 MG TAB PO SCH ×2 (08:34→12:43)
[2018-07-31] MEDS: RIFAXIMIN 550 MG TAB PO SCH (08:34)
[2018-07-31] MEDS: PROPRANOLOL 10 MG TAB PO SCH ×2 (08:35→12:43)
--- NOTE | 2018-07-31 14:34 | DS ---
Date/Time of Note Date/Time of Note DATE: 07/31/18 TIME: 14:29 Discharge Summary Admission/Discharge Info Admit Date/Time Jul 18, 2018 at 21:26 Discharge Date/Time Jul 31, 2018 at 12:50 Discharge Diagnosis Alcoholic hepatitis - Continue supportive care - Pentoxifylline course -Outpatient follow-up -Cessation advised, family given permission on alcohol withdrawal programs Cirrhosis with varices and ascites - Propranolol - Lactulose and rifaxamin -Continue Lasix and Aldactone -Ultrasound of the abdomen shows an insufficient amount of fluid for paracentesis SCOTT-resolved Patient Condition: Good Hospital Course Patient is a 43 yo male with alcohol abuse who presents with severe alcoholic hepatitis and cirrhosis. Patient had a prolonged hospital course for debility secondary to alcohol hepatitis, patient was seen by GI and EGD did show Portal hypertensive gastropathy and non-bleeding EV grade 0-1, too small to band. Patient was placed on Pentoxifylline course had elevated bilirubin as well as coagulopathy secondary to liver disease. Patient was seen by social media executive and alcohol withdrawal programs were given to family. Patient was to be discharged to his sister's home under her care, I will cessation was emphasized multiple times. Patient did have some abdominal distention ultrasound abdomen showed an insufficient amount of fluid for paracentesis. Patient did have acute kidney injury which resolved. Patient was stable for DC, the day of discharge patient's vitals, labs and physical exam are stable. Home Meds Active Scripts Pantoprazole* (Pantoprazole*) 40 Mg Tablet.dr, 40 MG PO DAILY@06, #60 TAB Prov:TANYACELE 07/30/18 Lactulose* (Lactulose*) 20 Gm/30 Ml Solution, 20 GM PO BID, #60 CAP 2 Refills Prov:TANYACELE 07/30/18 Furosemide* (Furosemide*) 40 Mg Tablet, 40 MG PO DAILY, #60 TAB 1 Refill Prov:TANYACELE WALL 07/30/18 Tramadol HCl (Tramadol HCl) 50 Mg Tablet, 50 MG PO TID PRN for PAIN LEVEL 7-10, #40 TAB Prov:TANYACELE 07/30/18 Spironolactone* (Aldactone*) 50 Mg Tablet, 100 MG PO DAILY, #60 TAB 1 Refill Prov:CELE MARTÍNEZ 07/30/18 Propranolol Hcl* (Propranolol Hcl*) 10 Mg Tablet, 10 MG PO TID for 30 Days, #90 TAB 1 Refill Prov:CELE MARTÍNEZ 07/30/18 Pentoxifylline* (Pentoxifylline*) 400 Mg Tablet.sa, 400 MG PO TID for 18 Days, #54 TAB Prov:CELE MARTÍNEZ 07/30/18 Rifaximin* (Xifaxan*) 550 Mg Tablet, 550 MG PO BID for 30 Days, #60 TAB Prov:CELE MARTÍNEZ 07/30/18 Follow-up Plan FOLLOW UP WITH YOUR PCP IN 1-2 WEEKS Primary Care Provider Care Physician No Primary Time spent on discharge: > 30 minutes CELE MARTÍNEZ Jul 31, 2018 14:34
== END 2018-07-31 12:50 | disposition home or self-care (01) | DRG 433 ==
LOC: TEL 21:26 → PP2 07-20 18:57 → 5EC 07-23 13:00
PROVIDERS: ADMIT Internal Medicine; ATTEND Internal Medicine
PROC: 0DJ08ZZ Inspection of Upper Intestinal Tract, Via Natural or Artificial Opening Endoscopic (ICD-10-PCS; principal; 2018-07-23 17:30)
DX: K70.11 Alcoholic hepatitis with ascites (principal); N17.9 Acute kidney failure, unspecified; F10.239 Alcohol dependence with withdrawal, unspecified; K70.40 Alcoholic hepatic failure without coma; K76.6 Portal hypertension; I85.10 Secondary esophageal varices without bleeding; D68.4 Acquired coagulation factor deficiency; K57.92 Diverticulitis of intestine, part unspecified, without perforation or abscess without bleeding; K70.31 Alcoholic cirrhosis of liver with ascites; K31.89 Other diseases of stomach and duodenum; E66.9 Obesity, unspecified; Z68.31 Body mass index [BMI] 31.0-31.9, adult; D64.9 Anemia, unspecified; D69.6 Thrombocytopenia, unspecified; E87.6 Hypokalemia
CPT/HCPCS: 74181; 76705; 80048; 80053; 80061; 81001; 81003; 82140; 82962; 83036; 83735; 84100; 84155; 84300; 84443; 85025; 85049; 85610; 85670; 85730; 86704; 86709; 86803; 87340; 93970; 97110; 97116; 97161; 97530; J2060; J2270; J2543; J3411; J3480; J7030; P9047